=== PATIENT | female | born 1965 | race African-American/Black ===

== ENCOUNTER 2019-02-10 10:43 | Inpatient (IN) | payer MEDICAID ==
[~2019-02-10] VITALS: Ht 162.6 cm; Wt 67.6 kg
[~2019-02-10 10:43] MED LIST: GLIP5TAB12 PO; METF-414 PO
[2019-02-10 11:22] LABS: BASOPHILS % 0.4 % (0.0-2.0); EOSINOPHILS % 1.6 % (0.0-5.0); HEMATOCRIT. 29.9 % (36.0-48.0); HEMOGLOBIN. 9.6 g/dL (12.0-16.0); LYMPHOCYTES % 14.6 % (20.0-50.0); MEAN CORPUSCULAR HEMOGLOBIN 27.7 pg (28.0-32.0); MEAN CORPUSCULAR VOLUME 86.7 fL (81.0-99.0); MEAN PLATELET VOLUME 7.2 fl (7.4-10.4); MONOCYTES % 7.5 % (2.0-8.0); NEUTROPHILS % 75.9 % (40.0-76.0); PLATELET 495 x1000/uL (130-400); RED BLOOD CELL COUNT 3.45 mill/uL (4.2-5.4); RED CELL DISTRIBUTION WIDTH 14.5 % (11.6-14.6)
[2019-02-10 11:27] LABS: CHLORIDE 114 mEq/L (98-107)
[2019-02-10] MEDS ORDERED: FUROSEMIDE 40MG/4ML VIAL IVP ONE (12:30)
[2019-02-10] MEDS ORDERED: ASPIRIN 81MG TABLET PO ONE (12:30)
[2019-02-10] MEDS ORDERED: MAGNESIUM/ALUMINUM HYDROXIDE/SIMETHICONE 30ML UDC PO PRN (15:45)
[2019-02-10] MEDS ORDERED: HALOPERIDOL LACTATE 5MG/ML VIAL IM PRN (15:45)
[2019-02-10] MEDS ORDERED: CLONIDINE 0.1MG TABLET PO PRN (15:45)
[2019-02-10] MEDS ORDERED: DEXTROSE 50% WATER 50ML SYRINGE IV PRN (15:45)
[2019-02-10] MEDS ORDERED: ACETAMINOPHEN 325MG TABLET PO PRN (15:45)
[2019-02-10] MEDS ORDERED: ONDANSETRON HCL 4MG/2ML INJ IV PRN (15:45)
[2019-02-10] MEDS ORDERED: ZOLPIDEM TARTRATE 5MG TABLET PO PRN (15:45)
[2019-02-10] MEDS ORDERED: DOCUSATE SODIUM 100MG CAPSULE PO PRN (15:45)
[2019-02-10] MEDS ORDERED: IPRATROPIUM/ALBUTEROL 0.5-3(2.5)MG/3ML NEB INH PRN (15:45)
[2019-02-10 17:30] VITALS: BP 117/84
[2019-02-10] MEDS: BLOOD SUGAR DIAGNOSTIC STRIP TEST SCH ×2 (19:00→20:27)
[2019-02-10] MEDS: NITROGLYCERIN 0.4MG TABLET SL SL PRN ×2 (19:25→20:35)
[2019-02-10] MEDS: GUAIFENESIN 200MG/10ML SUGAR FREE UDC PO PRN (19:28)
[2019-02-10 20:00] VITALS: BP 127/77
[2019-02-10] MEDS ORDERED: METOLAZONE 10MG TABLET PO NR (20:00)
[2019-02-10] MEDS ORDERED: ENOXAPARIN 30MG/0.3ML SYR SUBCUT SCH (20:00)
[2019-02-10] MEDS: INSULIN LISPRO 100 UNITS/ML SUBCUT SCH (20:26)
[2019-02-10] MEDS: FAMOTIDINE 20MG TABLET PO SCH (20:36)
[2019-02-10] MEDS: FUROSEMIDE 40MG/4ML VIAL IVP SCH (21:00)
[2019-02-10 22:46] LABS: CREATINE KINASE MB FRACTION 1.7 ng/mL (0.5-3.6)
[2019-02-10 23:53] VITALS: BP 90/59
[2019-02-11] MEDS: GUAIFENESIN 200MG/10ML SUGAR FREE UDC PO PRN (02:58)
[2019-02-11 04:00] VITALS: BP 121/66
[2019-02-11 06:05] LABS: BASOPHILS % 0.5 % (0.0-2.0); EOSINOPHILS % 1.4 % (0.0-5.0); HEMOGLOBIN. 8.4 g/dL (12.0-16.0); MEAN CORPUSCULAR HEMOGLOBIN 27.7 pg (28.0-32.0); MEAN CORPUSCULAR VOLUME 85.9 fL (81.0-99.0); MONOCYTES % 8.2 % (2.0-8.0); NEUTROPHILS % 78.9 % (40.0-76.0); PLATELET 439 x1000/uL (130-400); RED BLOOD CELL COUNT 3.02 mill/uL (4.2-5.4); RED CELL DISTRIBUTION WIDTH 14.3 % (11.6-14.6)
[2019-02-11 06:37] LABS: CHLORIDE 114 mEq/L (98-107)
[2019-02-11] MEDS: FUROSEMIDE 40MG/4ML VIAL IVP SCH (06:38)
[2019-02-11 06:43] LABS: PHOSPHORUS 3.3 mg/dL (2.5-4.9)
[2019-02-11 06:44] LABS: TOTAL IRON BINDING CAPACITY 229 ug/dL (250-450)
[2019-02-11 06:46] LABS: CREATINE KINASE 172 IU/L (26-192)
[2019-02-11 06:48] LABS: CREATINE KINASE MB FRACTION 2.1 ng/mL (0.5-3.6)
[2019-02-11 08:00] VITALS: BP 126/90
[2019-02-11] MEDS: BLOOD SUGAR DIAGNOSTIC STRIP TEST SCH (08:08)
[2019-02-11] MEDS: INSULIN LISPRO 100 UNITS/ML SUBCUT SCH (08:08)
[2019-02-11] MEDS: FAMOTIDINE 20MG TABLET PO SCH (08:09)
[2019-02-11] MEDS ORDERED: ASPIRIN 325MG EC TABLET PO SCH (09:00)
[2019-02-11 11:06] VITALS: BP 126/90
[2019-02-11] MEDS ORDERED: GLYB2.5T4 MT (11:20)
[2019-02-11] MEDS ORDERED: ASPI-1079 PO (11:20)
[2019-02-11] MEDS ORDERED: FURO-151 MT (11:20)
[2019-02-12 09:06] LABS: IMMUNOGLOBULIN A 378 mg/dL (87-352); IMMUNOGLOBULIN G 1635 mg/dL (700-1600); IMMUNOGLOBULIN M 64 mg/dL (26-217)
[2019-02-12 13:11] LABS: A/G RATIO 0.7 (0.7-1.7); ALBUMIN 2.6 g/dL (2.9-4.4); ALPHA-1-GLOBULIN 0.5 g/dL (0.0-0.4); ALPHA-2-GLOBULIN 0.9 g/dL (0.4-1.0); BETA GLOBULIN 1.1 g/dL (0.7-1.3); GAMMA GLOBULINS 1.5 g/dL (0.4-1.8); M-SPIKE Not Observed g/dL (Not Observed); TOTAL PROTEIN SERUM 6.6 g/dL (6.0-8.5)
== END 2019-02-11 14:05 | disposition home or self-care (01) | DRG 469 ==
LOC: ER 10:43 → ENRESERV 14:44 → 7WST 18:07
PROVIDERS: ADMIT Internal Medicine; ATTEND Internal Medicine
DX: N17.0 Acute kidney failure with tubular necrosis (principal); J96.00 Acute respiratory failure, unspecified whether with hypoxia or hypercapnia; I50.33 Acute on chronic diastolic (congestive) heart failure; E44.0 Moderate protein-calorie malnutrition; J44.1 Chronic obstructive pulmonary disease with (acute) exacerbation; D63.8 Anemia in other chronic diseases classified elsewhere; E11.22 Type 2 diabetes mellitus with diabetic chronic kidney disease; E83.51 Hypocalcemia; I13.0 Hypertensive heart and chronic kidney disease with heart failure and stage 1 through stage 4 chronic kidney disease, or unspecified chronic kidney disease; E78.5 Hyperlipidemia, unspecified; E83.52 Hypercalcemia; F17.210 Nicotine dependence, cigarettes, uncomplicated; E11.621 Type 2 diabetes mellitus with foot ulcer; E11.51 Type 2 diabetes mellitus with diabetic peripheral angiopathy without gangrene; N18.3 Chronic kidney disease, stage 3 (moderate); Z89.422 Acquired absence of other left toe(s); Z89.511 Acquired absence of right leg below knee; Z79.4 Long term (current) use of insulin; Z82.49 Family history of ischemic heart disease and other diseases of the circulatory system; Z83.3 Family history of diabetes mellitus; Z68.25 Body mass index [BMI] 25.0-25.9, adult
CPT/HCPCS: 36415; 71045; 76770; 80048; 80061; 82550; 82553; 82728; 82784; 82962; 83036; 83540; 83550; 83735; 83880; 84100; 84155; 84165; 84484; 86334; 93005; 93970; 96374; 99285; J1630; J1650; J1940

== ENCOUNTER 2019-06-02 11:32 | Emergency (ER) | payer MEDICARE, MEDICAID ==
[~2019-06-02] VITALS: Ht 162.6 cm; Wt 46.0 kg
[~2019-06-02 11:32] MED LIST changes: +ASPI-1079 PO; +FURO-151 MT; -GLIP5TAB12 PO; +GLYB2.5T4 MT; -METF-414 PO
[2019-06-02] MEDS ORDERED: SODIUM CHLORIDE 0.9% 1000ML BAG (SEPSIS BOLUS) IV ONE (12:00)
[2019-06-02 12:37] LABS: BASOPHILS % 0.4 % (0.0-2.0); HEMATOCRIT. 26.2 % (36.0-48.0); HEMOGLOBIN. 8.3 g/dL (12.0-16.0); LYMPHOCYTES % 23.8 % (20.0-50.0); MEAN CORPUSCULAR HEMOGLOBIN 26.7 pg (28.0-32.0); MEAN PLATELET VOLUME 6.9 fl (7.4-10.4); MONOCYTES % 6.5 % (2.0-8.0); NEUTROPHILS % 65.3 % (40.0-76.0); PLATELET 455 x1000/uL (130-400); RED BLOOD CELL COUNT 3.12 mill/uL (4.2-5.4); RED CELL DISTRIBUTION WIDTH 15.7 % (11.6-14.6)
[2019-06-02 12:42] LABS: CHLORIDE 116 mEq/L (98-107)
[2019-06-02 12:49] LABS: PROTHROMBIN TIME 10.2 sec (9.6-11.0)
[2019-06-02 14:45] VITALS: BP 122/76
== END 2019-06-02 14:40 | disposition home or self-care (01) ==
LOC: ER 11:51
DX: J40 Bronchitis, not specified as acute or chronic (principal); R04.2 Hemoptysis; Z71.6 Tobacco abuse counseling; F17.210 Nicotine dependence, cigarettes, uncomplicated; E11.9 Type 2 diabetes mellitus without complications; Z79.82 Long term (current) use of aspirin; Z89.519 Acquired absence of unspecified leg below knee
CPT/HCPCS: 36415; 71045; 80053; 83605; 85025; 85610; 87040; 93005; 99284; 99406; J7030

== ENCOUNTER 2020-08-20 09:59 | Emergency (ER) | payer MEDICARE, MEDICAID ==
[~2020-08-20] VITALS: Ht 157.5 cm; Wt 55.0 kg
[~2020-08-20 09:59] MED LIST changes: +AMLO5TAB4 PO; -ASPI-1079 PO; +BENA20TA77 PO; +CITR15SO2 PO; -FURO-151 MT; -GLYB2.5T4 MT; +QUET25TA PO; +SODI15OR5 PO
[2020-08-20] MEDS ORDERED: ACETAMINOPHEN 325MG TABLET PO ONE (11:00)
[2020-08-20 11:35] LABS: BASOPHILS % 1.3 % (0.0-2.0); EOSINOPHILS % 3.9 % (0.0-5.0); HEMATOCRIT. 32.8 % (36.0-48.0); HEMOGLOBIN. 9.7 g/dL (12.0-16.0); LYMPHOCYTES % 14.8 % (20.0-50.0); MEAN CORPUSCULAR HEMOGLOBIN 27.3 pg (28.0-32.0); MEAN PLATELET VOLUME 8.4 fl (7.4-10.4); MONOCYTES % 6.1 % (2.0-8.0); NEUTROPHILS % 73.9 % (40.0-76.0); PLATELET 192 x1000/uL (130-400); RED BLOOD CELL COUNT 3.56 mill/uL (4.2-5.4); RED CELL DISTRIBUTION WIDTH 20.6 % (11.6-14.6)
[2020-08-20 11:43] LABS: INR 1.1; PROTHROMBIN TIME 11.7 sec (9.6-11.0)
[2020-08-20 12:40] VITALS: BP 125/62
== END 2020-08-20 13:59 | disposition home or self-care (01) ==
LOC: ER 09:59
DX: K64.4 Residual hemorrhoidal skin tags (principal); E11.9 Type 2 diabetes mellitus without complications; I10 Essential (primary) hypertension; Z87.891 Personal history of nicotine dependence; Z79.899 Other long term (current) drug therapy
CPT/HCPCS: 36415; 82962; 85025; 93005; 99284

== ENCOUNTER 2020-08-30 16:04 | Inpatient (IN) | payer MEDICARE, MEDICAID ==
[~2020-08-30] VITALS: Ht 149.9 cm; Wt 55.3 kg
[2020-08-30] MEDS ORDERED: SODIUM CHLORIDE 0.9% 500 ML IV ONE (17:45)
[2020-08-30] MEDS ORDERED: FAMOTIDINE 20MG/2ML VIAL IV ONE (17:45)
[2020-08-30] MEDS ORDERED: ONDANSETRON HCL 4MG/2ML INJ IV ONE (17:45)
[2020-08-30] MEDS ORDERED: PANTOPRAZOLE SODIUM 40 MG/VIAL IV ONE (18:45)
[2020-08-30 19:58] LABS: BASOPHILS % 1.1 % (0.0-2.0); EOSINOPHILS % 1.5 % (0.0-5.0); HEMATOCRIT. 21.2 % (36.0-48.0); LYMPHOCYTES % 13.4 % (20.0-50.0); MEAN CORPUSCULAR HEMOGLOBIN 28.1 pg (28.0-32.0); MEAN CORPUSCULAR VOLUME 88.7 fL (81.0-99.0); MEAN PLATELET VOLUME 8.5 fl (7.4-10.4); MONOCYTES % 4.6 % (2.0-8.0); NEUTROPHILS % 79.4 % (40.0-76.0); PLATELET 165 x1000/uL (130-400); RED BLOOD CELL COUNT 2.39 mill/uL (4.2-5.4); RED CELL DISTRIBUTION WIDTH 22.5 % (11.6-14.6)
[2020-08-30 20:00] LABS: HEMOGLOBIN. 6.7 g/dL (12.0-16.0)
[2020-08-30 20:03] LABS: CHLORIDE 125 mEq/L (98-107)
[2020-08-30 20:14] LABS: PLATELET ESTIMATE NORMAL
[2020-08-30] MEDS ORDERED: DEXTROSE 50% WATER 50ML SYRINGE IV ONE (20:15)
[2020-08-30] MEDS ORDERED: DEXT 5%/0.9% NACL 1,000 ML IV ONE (20:15)
[2020-08-30] MEDS ORDERED: SODIUM BICARBONATE 8.4% 1 MEQ/ML 50ML SYR IV NR (22:00)
[2020-08-30] MEDS ORDERED: ZOLPIDEM TARTRATE 5MG TABLET PO PRN (22:00)
[2020-08-30] MEDS ORDERED: GUAIFENESIN 200MG/10ML SUGAR FREE UDC PO PRN (22:00)
[2020-08-30] MEDS ORDERED: ACETAMINOPHEN 325MG TABLET PO PRN ×2 (22:00)
[2020-08-30] MEDS ORDERED: IPRATROPIUM/ALBUTEROL 0.5-3(2.5)MG/3ML NEB NEB PRN (22:00)
[2020-08-30] MEDS ORDERED: DOCUSATE SODIUM 100MG CAPSULE PO PRN (22:00)
[2020-08-30] MEDS ORDERED: CLONIDINE 0.1MG TABLET PO PRN (22:00)
[2020-08-30] MEDS ORDERED: MAGNESIUM/ALUMINUM HYDROXIDE/SIMETHICONE 30ML UDC PO PRN (22:00)
[2020-08-30] MEDS ORDERED: NITROGLYCERIN 0.4MG TABLET SL SL PRN (22:00)
[2020-08-30] MEDS ORDERED: ONDANSETRON HCL 4MG/2ML INJ IV PRN (22:00)
[2020-08-30] MEDS ORDERED: HALOPERIDOL LACTATE 5MG/ML VIAL IM PRN (22:12)
[2020-08-31] VITALS (7 sets, daily range): BP systolic 101–135; BP diastolic 47–82
[2020-08-31 00:02] LABS: HEMOGLOBIN 5.2 g/dL (12.0-16.0)
[2020-08-31 00:03] LABS: HEMATOCRIT 16.4 % (36.0-48.0)
[2020-08-31 00:08] LABS: T4 FREE 0.77 ng/dL (0.76-1.46)
[2020-08-31 02:18] LABS: FOLIC ACID (FOLATE) SERUM 10.2 ng/mL (>5.38)
[2020-08-31] MEDS: DEXT 5%/0.45% NACL 1000ML 1,000 ML IV SCH ×3 (03:39→23:55)
[2020-08-31 06:06] LABS: CHLORIDE 125 mEq/L (98-107)
[2020-08-31] MEDS: INSULIN LISPRO 100 UNITS/ML SUBCUT SCH ×4 (06:21→21:00)
[2020-08-31] MEDS: BLOOD SUGAR DIAGNOSTIC STRIP TEST SCH ×4 (06:21→21:00)
[2020-08-31 06:25] LABS: PHOSPHORUS 6.4 mg/dL (2.5-4.9)
[2020-08-31 07:33] LABS: BASOPHILS % 1.4 % (0.0-2.0); EOSINOPHILS % 1.9 % (0.0-5.0); LYMPHOCYTES % 17.6 % (20.0-50.0); MEAN CORPUSCULAR HEMOGLOBIN 28.7 pg (28.0-32.0); MEAN CORPUSCULAR VOLUME 91.8 fL (81.0-99.0); MEAN PLATELET VOLUME 8.6 fl (7.4-10.4); MONOCYTES % 5.2 % (2.0-8.0); NEUTROPHILS % 73.9 % (40.0-76.0); PLATELET 150 x1000/uL (130-400); RED BLOOD CELL COUNT 2.38 mill/uL (4.2-5.4); RED CELL DISTRIBUTION WIDTH 20.3 % (11.6-14.6)
[2020-08-31 07:53] LABS: HEMOGLOBIN. 6.8 g/dL (12.0-16.0)
[2020-08-31 07:54] LABS: HEMATOCRIT. 21.8 % (36.0-48.0)
[2020-08-31] MEDS: FAMOTIDINE 20MG TABLET PO SCH ×2 (09:04→22:12)
[2020-08-31] MEDS: ZINC SULFATE 220 MG ( 50 ) CAPSULE PO SCH (09:04)
[2020-08-31] MEDS: ASCORBIC ACID 500 MG TABLET PO SCH ×2 (09:04→22:12)
[2020-08-31] MEDS: CITRIC ACID/SODIUM CITRATE SOLN 15ML UDC PO SCH ×3 (09:04→17:31)
[2020-08-31 11:34] LABS: PHOSPHORUS 6.3 mg/dL (2.5-4.9)
[2020-08-31] MEDS: SUCRALFATE 1 G/10 ML UDC PO SCH ×2 (13:31→17:32)
[2020-08-31 16:38] LABS: INR 1.2; PARTIAL THROMBOPLASTIN TIME 32.8 sec (23.4-31.0); PROTHROMBIN TIME 12.1 sec (9.6-11.0)
[2020-08-31 17:11] LABS: HEPATITIS B SURFACE ANTIGEN NEGATIVE
[2020-08-31] MEDS: PANTOPRAZOLE SODIUM 40 MG/VIAL IV SCH (17:32)
[2020-08-31 17:41] LABS: HEPATITIS A AB IGM NEGATIVE (NEGATIVE)
[2020-08-31 18:38] LABS: HEMATOCRIT 24.5 % (36.0-48.0); HEMOGLOBIN 7.9 g/dL (12.0-16.0)
[2020-08-31] MEDS ORDERED: PHYTONADIONE 10MG/ML AMP SUBCUT NR (23:57)
[2020-09-01] VITALS (13 sets, daily range): BP systolic 109–149; BP diastolic 43–78
[2020-09-01] MEDS: SUCRALFATE 1 G/10 ML UDC PO SCH ×4 (00:28→18:38)
[2020-09-01] MEDS: DEXT 5%/0.45% NACL 1000ML 1,000 ML IV SCH ×2 (00:29→20:00)
[2020-09-01 00:51] LABS: HEMATOCRIT 23.3 % (36.0-48.0); HEMOGLOBIN 7.5 g/dL (12.0-16.0)
[2020-09-01 01:34] LABS: CLARITY URINE TURBID (CLEAR); COLOR URINE YELLOW (YELLOW); KETONES URINE NEGATIVE (NEGATIVE); LEUKOCYTE ESTERASE URINE 3+ (NEGATIVE); NITRITE URINE NEGATIVE (NEGATIVE); OCCULT BLOOD URINE 2+ (NEGATIVE); PH URINE 6.5 (4.5-8.0); PROTEIN URINE 3+ (NEGATIVE); SPECIFIC GRAVITY URINE 1.014 (1.005-1.030); UROBILINOGEN URINE 0.2 E.U./dL (0.2-1.0)
[2020-09-01] MEDS: BLOOD SUGAR DIAGNOSTIC STRIP TEST SCH ×4 (05:07→21:00)
[2020-09-01] MEDS: INSULIN LISPRO 100 UNITS/ML SUBCUT SCH ×4 (05:16→21:00)
[2020-09-01 06:03] LABS: HEMATOCRIT. 27.3 % (36.0-48.0); HEMOGLOBIN. 8.9 g/dL (12.0-16.0); MEAN CORPUSCULAR VOLUME 88.7 fL (81.0-99.0); MEAN PLATELET VOLUME 8.2 fl (7.4-10.4); PLATELET 142 x1000/uL (130-400); RED BLOOD CELL COUNT 3.07 mill/uL (4.2-5.4); RED CELL DISTRIBUTION WIDTH 18.9 % (11.6-14.6)
[2020-09-01 06:09] LABS: INR 1.1; PROTHROMBIN TIME 11.8 sec (9.6-11.0)
[2020-09-01 06:15] LABS: CHLORIDE 121 mEq/L (98-107)
[2020-09-01] MEDS ORDERED: LACTULOSE 20G/30ML UDC PO NR (09:00)
[2020-09-01] MEDS ORDERED: TUBERCULIN,PURIF.PROT.DERIV. 5 TU/0.1 ML SYR ID ONE (09:00)
[2020-09-01 09:06] LABS: FOLATE HEMATOCRIT 19.1 % (34.0-46.6)
[2020-09-01] MEDS: PANTOPRAZOLE SODIUM 40 MG/VIAL IV SCH ×2 (09:46→18:38)
[2020-09-01] MEDS: CITRIC ACID/SODIUM CITRATE SOLN 15ML UDC PO SCH (09:46)
[2020-09-01] MEDS: ASCORBIC ACID 500 MG TABLET PO SCH ×2 (09:46→22:16)
[2020-09-01] MEDS: FAMOTIDINE 20MG TABLET PO SCH (09:46)
[2020-09-01] MEDS: ZINC SULFATE 220 MG ( 50 ) CAPSULE PO SCH (09:46)
[2020-09-01 09:47] LABS: NUCLEATED RED BLOOD CELLS 2 /100 WBC; PLATELET ESTIMATE NORMAL
[2020-09-01] MEDS: CITRIC ACID/SODIUM CITRATE SOLN 30ML UDC PO SCH ×3 (12:30→17:00)
[2020-09-01] MEDS: LACTULOSE 20G/30ML UDC PO SCH ×8 (12:31→18:00)
[2020-09-01] MEDS ORDERED: SODIUM BICARBONATE 4% (2.4MEQ) 5ML VIAL IV ONE (12:41)
[2020-09-01] MEDS ORDERED: LIDOCAINE HCL 1% 20ML VIAL (Pyxis) INJ ONE (12:41)
[2020-09-01] MEDS ORDERED: CEFAZOLIN 1000MG PREMIX 50 ML IV ONE ×2 (12:45→12:52)
[2020-09-01 12:51] LABS: HEMATOCRIT 25.8 % (36.0-48.0); HEMOGLOBIN 8.5 g/dL (12.0-16.0)
[2020-09-01] MEDS ORDERED: FENTANYL CITRATE/PF 50MCG/ML 2ML VIAL ONE (12:52)
[2020-09-01 13:06] LABS: FOLATE RBC 1822 ng/mL (>498)
[2020-09-01] MEDS ORDERED: HEPARIN 1000 UNITS/ML 10ML ONE (13:25)
[2020-09-01] MEDS: SILDENAFIL CITRATE 20MG TABLET PO SCH ×2 (14:00→22:16)
[2020-09-01] MEDS ORDERED: DEXTROSE 50% WATER 50ML SYRINGE IV NR (19:00)
[2020-09-01] MEDS ORDERED: DEXTROSE 50% WATER 50ML SYRINGE IV ONE (19:01)
[2020-09-01] MEDS ORDERED: PARICALCITOL 2 MCG/ML VIAL IV NR (20:00)
[2020-09-01] MEDS ORDERED: EPOETIN ALFA-EPBX 10,000 UNIT/ML VIAL SUBCUT NR (21:00)
[2020-09-02] VITALS (7 sets, daily range): BP systolic 103–161; BP diastolic 44–91
[2020-09-02] MEDS: SUCRALFATE 1 G/10 ML UDC PO SCH ×4 (01:46→18:29)
[2020-09-02] MEDS: SILDENAFIL CITRATE 20MG TABLET PO SCH ×3 (06:14→21:39)
[2020-09-02] MEDS: BLOOD SUGAR DIAGNOSTIC STRIP TEST SCH ×4 (07:10→21:39)
[2020-09-02 07:11] LABS: HIV SCREEN 4G Non Reactive (Non Reactive)
[2020-09-02] MEDS: INSULIN LISPRO 100 UNITS/ML SUBCUT SCH ×4 (07:40→21:00)
[2020-09-02] MEDS: LACTULOSE 20G/30ML UDC PO SCH ×2 (08:53→18:30)
[2020-09-02] MEDS: CITRIC ACID/SODIUM CITRATE SOLN 30ML UDC PO SCH ×3 (08:53→18:29)
[2020-09-02] MEDS: ZINC SULFATE 220 MG ( 50 ) CAPSULE PO SCH (08:54)
[2020-09-02] MEDS: FAMOTIDINE 20MG TABLET PO SCH (08:54)
[2020-09-02] MEDS: ASCORBIC ACID 500 MG TABLET PO SCH ×2 (08:55→21:38)
[2020-09-02] MEDS: PANTOPRAZOLE SODIUM 40 MG/VIAL IV SCH ×2 (09:00→17:00)
[2020-09-02 09:06] LABS: VITAMIN D 25-OH 6.1 ng/mL (30.0-100.0)
[2020-09-02 10:12] LABS: BASOPHILS % 0.4 % (0.0-2.0); EOSINOPHILS % 2.3 % (0.0-5.0); HEMATOCRIT. 22.6 % (36.0-48.0); HEMOGLOBIN. 7.5 g/dL (12.0-16.0); LYMPHOCYTES % 11.3 % (20.0-50.0); MEAN PLATELET VOLUME 7.8 fl (7.4-10.4); MONOCYTES % 6.5 % (2.0-8.0); NEUTROPHILS % 79.5 % (40.0-76.0); PLATELET 120 x1000/uL (130-400)
[2020-09-02 10:22] LABS: INR 1.1; PROTHROMBIN TIME 11.9 sec (9.6-11.0)
[2020-09-02] MEDS: DEXT 5%/0.45% NACL 1000ML 1,000 ML IV SCH (16:00)
[2020-09-02 23:30] LABS: EOSINOPHILS % 2.6 % (0.0-5.0); HEMATOCRIT. 24.4 % (36.0-48.0); HEMOGLOBIN. 8.1 g/dL (12.0-16.0); LYMPHOCYTES % 13.9 % (20.0-50.0); MEAN CORPUSCULAR HEMOGLOBIN 29.2 pg (28.0-32.0); MEAN CORPUSCULAR VOLUME 88.2 fL (81.0-99.0); MEAN PLATELET VOLUME 7.9 fl (7.4-10.4); MONOCYTES % 7.2 % (2.0-8.0); NEUTROPHILS % 75.3 % (40.0-76.0); PLATELET 121 x1000/uL (130-400); RED BLOOD CELL COUNT 2.76 mill/uL (4.2-5.4); RED CELL DISTRIBUTION WIDTH 18.7 % (11.6-14.6)
[2020-09-02 23:46] LABS: CHLORIDE 114 mEq/L (98-107)
[2020-09-03] VITALS (12 sets, daily range): BP systolic 107–145; BP diastolic 49–82
[2020-09-03] MEDS: SUCRALFATE 1 G/10 ML UDC PO SCH ×4 (00:53→18:24)
[2020-09-03] MEDS: SILDENAFIL CITRATE 20MG TABLET PO SCH ×3 (06:36→22:04)
[2020-09-03] MEDS: INSULIN LISPRO 100 UNITS/ML SUBCUT SCH ×4 (07:40→21:00)
[2020-09-03] MEDS: BLOOD SUGAR DIAGNOSTIC STRIP TEST SCH ×4 (07:51→21:00)
[2020-09-03 08:31] LABS: CHLORIDE 116 mEq/L (98-107)
[2020-09-03 08:33] LABS: BASOPHILS % 0.7 % (0.0-2.0); EOSINOPHILS % 2.3 % (0.0-5.0); HEMATOCRIT. 24.7 % (36.0-48.0); HEMOGLOBIN. 8.1 g/dL (12.0-16.0); LYMPHOCYTES % 11.2 % (20.0-50.0); MEAN CORPUSCULAR HEMOGLOBIN 29.3 pg (28.0-32.0); MEAN CORPUSCULAR VOLUME 89.6 fL (81.0-99.0); MEAN PLATELET VOLUME 8.1 fl (7.4-10.4); MONOCYTES % 6.7 % (2.0-8.0); NEUTROPHILS % 79.1 % (40.0-76.0); PLATELET 117 x1000/uL (130-400); RED BLOOD CELL COUNT 2.76 mill/uL (4.2-5.4); RED CELL DISTRIBUTION WIDTH 18.5 % (11.6-14.6)
[2020-09-03 08:35] LABS: INR 1.1; PROTHROMBIN TIME 11.8 sec (9.6-11.0)
[2020-09-03] MEDS: CITRIC ACID/SODIUM CITRATE SOLN 30ML UDC PO SCH ×3 (09:00→18:24)
[2020-09-03] MEDS: LACTULOSE 20G/30ML UDC PO SCH ×2 (09:00→18:24)
[2020-09-03] MEDS: ZINC SULFATE 220 MG ( 50 ) CAPSULE PO SCH (09:00)
[2020-09-03] MEDS: ASCORBIC ACID 500 MG TABLET PO SCH ×2 (09:00→22:04)
[2020-09-03] MEDS: FAMOTIDINE 20MG TABLET PO SCH (09:00)
[2020-09-03 12:11] LABS: BASOPHILS % 0.5 % (0.0-2.0); EOSINOPHILS % 2.7 % (0.0-5.0); HEMATOCRIT. 33.9 % (36.0-48.0); HEMOGLOBIN. 11.3 g/dL (12.0-16.0); LYMPHOCYTES % 15.1 % (20.0-50.0); MEAN CORPUSCULAR HEMOGLOBIN 28.8 pg (28.0-32.0); MEAN CORPUSCULAR VOLUME 86.2 fL (81.0-99.0); MONOCYTES % 4.9 % (2.0-8.0); NEUTROPHILS % 76.8 % (40.0-76.0); PLATELET 111 x1000/uL (130-400); RED BLOOD CELL COUNT 3.93 mill/uL (4.2-5.4); RED CELL DISTRIBUTION WIDTH 17.7 % (11.6-14.6)
[2020-09-03] MEDS: DEXTROSE 50% WATER 50ML SYRINGE IV PRN (12:11)
[2020-09-03] MEDS: DEXT 5%/0.45% NACL 1000ML 1,000 ML IV SCH (12:11)
[2020-09-03] MEDS: PANTOPRAZOLE SODIUM 40 MG/VIAL IV SCH ×2 (12:17→18:24)
[2020-09-04] VITALS: BP 124/62
[2020-09-04] MEDS: SUCRALFATE 1 G/10 ML UDC PO SCH ×7 (00:33→21:11)
[2020-09-04 04:00] VITALS: BP 153/79
[2020-09-04] MEDS: SILDENAFIL CITRATE 20MG TABLET PO SCH ×3 (06:00→21:11)
[2020-09-04] MEDS: INSULIN LISPRO 100 UNITS/ML SUBCUT SCH ×4 (07:02→20:26)
[2020-09-04] MEDS: BLOOD SUGAR DIAGNOSTIC STRIP TEST SCH ×4 (07:02→20:26)
[2020-09-04 07:41] LABS: BASOPHILS % 0.9 % (0.0-2.0); EOSINOPHILS % 3.7 % (0.0-5.0); HEMOGLOBIN. 11.8 g/dL (12.0-16.0); LYMPHOCYTES % 12.5 % (20.0-50.0); MEAN CORPUSCULAR HEMOGLOBIN 28.5 pg (28.0-32.0); MEAN CORPUSCULAR VOLUME 86.8 fL (81.0-99.0); MEAN PLATELET VOLUME 8.1 fl (7.4-10.4); MONOCYTES % 6.6 % (2.0-8.0); NEUTROPHILS % 76.3 % (40.0-76.0); PLATELET 73 x1000/uL (130-400); RED BLOOD CELL COUNT 4.15 mill/uL (4.2-5.4); RED CELL DISTRIBUTION WIDTH 17.8 % (11.6-14.6)
[2020-09-04 07:44] LABS: INR 1.1; PROTHROMBIN TIME 11.3 sec (9.6-11.0)
[2020-09-04 08:00] VITALS: BP 139/85
[2020-09-04] MEDS: FAMOTIDINE 20MG TABLET PO SCH (08:42)
[2020-09-04] MEDS: LACTULOSE 20G/30ML UDC PO SCH ×2 (08:42→17:00)
[2020-09-04] MEDS: CITRIC ACID/SODIUM CITRATE SOLN 30ML UDC PO SCH ×3 (08:42→17:00)
[2020-09-04] MEDS: ZINC SULFATE 220 MG ( 50 ) CAPSULE PO SCH (08:42)
[2020-09-04] MEDS: ASCORBIC ACID 500 MG TABLET PO SCH ×2 (08:42→21:11)
[2020-09-04] MEDS ORDERED: EPHEDRINE SULFATE 50MG/ML VIAL ONE (08:45)
[2020-09-04] MEDS ORDERED: PHENYLEPHRINE HCL 10 MG/ML 1ML (IV VIAL) IV ONE (08:45)
[2020-09-04] MEDS ORDERED: MIDAZOLAM HCL 2 MG/2 ML VIAL ONE (08:48)
[2020-09-04] MEDS ORDERED: FENTANYL CITRATE/PF 50MCG/ML 2ML VIAL ONE (08:49)
[2020-09-04] MEDS ORDERED: PROPOFOL 200MG/20ML VIAL IV ONE (08:49)
[2020-09-04] MEDS ORDERED: LIDOCAINE HCL/PF 1% 10 MG/ML 5ML VIAL ONE (08:50)
[2020-09-04] MEDS ORDERED: CALCITRIOL 0.5MCG CAPSULE PO NR (09:30)
[2020-09-04] MEDS ORDERED: CALCIUM ACETATE 667MG CAPSULE PO NR (09:32)
[2020-09-04] MEDS ORDERED: HEPARIN SODIUM 1,000 UNIT/1ML VIAL IV NR (10:11)
[2020-09-04] MEDS ORDERED: HEPARIN SODIUM 1,000 UNIT/1ML VIAL IV ONE (10:40)
[2020-09-04] MEDS: DEXT 5%/0.45% NACL 1000ML 1,000 ML IV SCH ×2 (11:47→22:52)
[2020-09-04] MEDS: CALCIUM ACETATE 667MG CAPSULE PO SCH ×2 (11:49→17:40)
[2020-09-04] MEDS: PANTOPRAZOLE SODIUM 40 MG/VIAL IV SCH ×2 (11:49→17:00)
[2020-09-04 12:00] VITALS: BP 151/89
[2020-09-04 16:00] VITALS: BP 128/82
[2020-09-04 20:00] VITALS: BP 144/74
[2020-09-05] VITALS (7 sets, daily range): BP systolic 120–158; BP diastolic 66–80
[2020-09-05] MEDS: BLOOD SUGAR DIAGNOSTIC STRIP TEST SCH ×4 (05:19→21:00)
[2020-09-05] MEDS: SILDENAFIL CITRATE 20MG TABLET PO SCH ×3 (05:26→22:15)
[2020-09-05] MEDS: SUCRALFATE 1 G/10 ML UDC PO SCH ×4 (05:26→22:29)
[2020-09-05] MEDS: INSULIN LISPRO 100 UNITS/ML SUBCUT SCH ×4 (05:29→22:31)
[2020-09-05] MEDS: LACTULOSE 20G/30ML UDC PO SCH ×2 (08:23→17:21)
[2020-09-05] MEDS: PANTOPRAZOLE SODIUM 40 MG/VIAL IV SCH ×2 (08:23→17:21)
[2020-09-05] MEDS: CITRIC ACID/SODIUM CITRATE SOLN 30ML UDC PO SCH ×3 (08:23→17:21)
[2020-09-05] MEDS: ASCORBIC ACID 500 MG TABLET PO SCH ×2 (08:24→22:15)
[2020-09-05] MEDS: ZINC SULFATE 220 MG ( 50 ) CAPSULE PO SCH (08:24)
[2020-09-05] MEDS: CALCIUM ACETATE 667MG CAPSULE PO SCH ×3 (08:24→17:21)
[2020-09-05 09:06] LABS: VITAMIN D 1-25 DIHYDROXY 8.2 pg/mL (19.9-79.3)
[2020-09-05] MEDS ORDERED: THROMBIN (BOVINE) 5000 UNITS/VIAL TOP ONE (10:19)
[2020-09-05] MEDS ORDERED: BACITRACIN 15GM TUBE TOP ONE (10:19)
[2020-09-05] MEDS ORDERED: LIDOCAINE HCL/PF 1% 10 MG/ML 5ML VIAL ONE (10:20)
[2020-09-05] MEDS ORDERED: HEPARIN SODIUM 1,000 UNIT/1ML VIAL IV ONE (10:20)
[2020-09-05] MEDS ORDERED: BUPIVACAINE HCL/PF 0.5% (5MG/ML) 10ML ONE (10:20)
[2020-09-05] MEDS ORDERED: SODIUM CHLORIDE 0.9% INJ 10ML FLUSH IVF ONE (10:20)
[2020-09-05] MEDS ORDERED: BACITRACIN 50,000 UNITS/VIAL ONE (10:20)
[2020-09-05] MEDS: DEXTROSE 50% WATER 50ML SYRINGE IV PRN (12:55)
[2020-09-05] MEDS ORDERED: PROPOFOL 200MG/20ML VIAL IV ONE (13:26)
[2020-09-05] MEDS ORDERED: FENTANYL CITRATE/PF 50MCG/ML 2ML VIAL ONE (13:26)
[2020-09-05] MEDS ORDERED: MIDAZOLAM HCL 2 MG/2 ML VIAL ONE (13:26)
[2020-09-05] MEDS ORDERED: DEXAMETHASONE 4MG/ML 1ML VIAL ONE (13:39)
[2020-09-05] MEDS ORDERED: ONDANSETRON HCL 4MG/2ML INJ ONE (13:41)
[2020-09-05] MEDS ORDERED: ONDANSETRON HCL 4MG/2ML INJ IV PRN (14:00)
[2020-09-05] MEDS ORDERED: LABETALOL 5MG/ML SYR 20 MG/4 ML SYRINGE IV PRN (14:00)
[2020-09-05] MEDS ORDERED: MEPERIDINE HCL/PF 25MG/ML CPJ IV PRN (14:00)
[2020-09-05] MEDS ORDERED: HYDROMORPHONE HCL/PF 2MG/ML CPJ IV PRN (14:00)
[2020-09-05] MEDS ORDERED: METHADONE HCL 5MG TABLET PO PRN (16:00)
[2020-09-06] VITALS: BP 124/75
[2020-09-06] MEDS: DEXT 5%/0.45% NACL 1000ML 1,000 ML IV SCH ×2 (02:41→20:53)
[2020-09-06 04:00] VITALS: BP_SYST 122; BP_SYST 124; BP_DIAS 75; BP_DIAS 82
[2020-09-06] MEDS ORDERED: IBUPROFEN 400MG TABLET PO PRN (04:30)
[2020-09-06] MEDS: BLOOD SUGAR DIAGNOSTIC STRIP TEST SCH ×4 (06:21→21:13)
[2020-09-06] MEDS: SILDENAFIL CITRATE 20MG TABLET PO SCH ×3 (06:37→21:14)
[2020-09-06] MEDS: INSULIN LISPRO 100 UNITS/ML SUBCUT SCH ×4 (06:40→21:00)
[2020-09-06] MEDS: SUCRALFATE 1 G/10 ML UDC PO SCH ×4 (06:50→20:53)
[2020-09-06 08:00] VITALS: BP 106/63
[2020-09-06] MEDS: CITRIC ACID/SODIUM CITRATE SOLN 30ML UDC PO SCH ×3 (09:00→17:00)
[2020-09-06] MEDS: LACTULOSE 20G/30ML UDC PO SCH ×2 (09:00→17:00)
[2020-09-06] MEDS: PANTOPRAZOLE SODIUM 40 MG/VIAL IV SCH ×2 (09:00→17:00)
[2020-09-06] MEDS: CALCIUM ACETATE 667MG CAPSULE PO SCH ×3 (10:38→17:40)
[2020-09-06] MEDS: ASCORBIC ACID 500 MG TABLET PO SCH ×2 (10:38→20:53)
[2020-09-06] MEDS: ZINC SULFATE 220 MG ( 50 ) CAPSULE PO SCH (10:38)
[2020-09-06] MEDS ORDERED: LEVOFLOXACIN 500MG PREMIX 100 ML IV NR (11:00)
[2020-09-06 12:00] VITALS: BP 129/64
[2020-09-06 16:00] VITALS: BP 127/77
[2020-09-06 20:00] VITALS: BP 150/72
[2020-09-07] VITALS: BP 141/75
[2020-09-07 04:00] VITALS: BP 133/76
[2020-09-07] MEDS: SUCRALFATE 1 G/10 ML UDC PO SCH (06:10)
[2020-09-07] MEDS: SILDENAFIL CITRATE 20MG TABLET PO SCH (06:11)
[2020-09-07] MEDS: INSULIN LISPRO 100 UNITS/ML SUBCUT SCH (06:19)
[2020-09-07] MEDS: BLOOD SUGAR DIAGNOSTIC STRIP TEST SCH (06:19)
[2020-09-07 08:00] VITALS: BP 153/83
[2020-09-07] MEDS: PANTOPRAZOLE SODIUM 40 MG/VIAL IV SCH (09:12)
[2020-09-07] MEDS: ASCORBIC ACID 500 MG TABLET PO SCH (09:13)
[2020-09-07] MEDS: ZINC SULFATE 220 MG ( 50 ) CAPSULE PO SCH (09:13)
[2020-09-07] MEDS: LACTULOSE 20G/30ML UDC PO SCH (09:13)
[2020-09-07] MEDS: CALCIUM ACETATE 667MG CAPSULE PO SCH (09:13)
[2020-09-07] MEDS: CITRIC ACID/SODIUM CITRATE SOLN 30ML UDC PO SCH (09:13)
[2020-09-07 11:19] VITALS: BP 132/64
[2020-09-08] MEDS ORDERED: LEVOFLOXACIN 250MG PREMIX 50 ML IV SCH (09:00)
== END 2020-09-07 14:28 | disposition home or self-care (01) | DRG 981 ==
LOC: ER 16:04 → 8WST 21:38 → SUPCPDRO 21:44 → CANRESERV 22:14 → ENRESERV 22:14 → EDBEDREQTM 22:29 → EDBEDREQSVC 22:29 → ENRESERV 22:59
PROVIDERS: ADMIT Internal Medicine; ATTEND Internal Medicine
PROC: 30233N1 Transfusion of Nonautologous Red Blood Cells into Peripheral Vein, Percutaneous Approach (ICD-10-PCS; principal; 2020-08-31)
PROC: 02H633Z Insertion of Infusion Device into Right Atrium, Percutaneous Approach (ICD-10-PCS; 2020-09-01)
PROC: B5181ZA Fluoroscopy of Superior Vena Cava using Low Osmolar Contrast, Guidance (ICD-10-PCS; 2020-09-01)
PROC: B54MZZA Ultrasonography of Right Upper Extremity Veins, Guidance (ICD-10-PCS; 2020-09-01)
PROC: 5A1D70Z Performance of Urinary Filtration, Intermittent, Less than 6 Hours Per Day (ICD-10-PCS; 2020-09-03)
PROC: 0DB68ZX Excision of Stomach, Via Natural or Artificial Opening Endoscopic, Diagnostic (ICD-10-PCS; 2020-09-04)
PROC: 03180ZD Bypass Left Brachial Artery to Upper Arm Vein, Open Approach (ICD-10-PCS; 2020-09-05)
DX: G92 Toxic encephalopathy (principal); K29.01 Acute gastritis with bleeding; E43 Unspecified severe protein-calorie malnutrition; N17.0 Acute kidney failure with tubular necrosis; N18.6 End stage renal disease; K26.4 Chronic or unspecified duodenal ulcer with hemorrhage; E87.0 Hyperosmolality and hypernatremia; E87.2 Acidosis; I12.0 Hypertensive chronic kidney disease with stage 5 chronic kidney disease or end stage renal disease; N25.81 Secondary hyperparathyroidism of renal origin; E11.22 Type 2 diabetes mellitus with diabetic chronic kidney disease; E11.649 Type 2 diabetes mellitus with hypoglycemia without coma; E83.39 Other disorders of phosphorus metabolism; E83.42 Hypomagnesemia; E83.51 Hypocalcemia; E86.0 Dehydration; E87.5 Hyperkalemia; D50.0 Iron deficiency anemia secondary to blood loss (chronic); F20.9 Schizophrenia, unspecified; I13.10 Hypertensive heart and chronic kidney disease without heart failure, with stage 1 through stage 4 chronic kidney disease, or unspecified chronic kidney disease; D69.6 Thrombocytopenia, unspecified; I27.21 Secondary pulmonary arterial hypertension; K29.60 Other gastritis without bleeding; K29.80 Duodenitis without bleeding; Z20.828 Contact with and (suspected) exposure to other viral communicable diseases; K72.90 Hepatic failure, unspecified without coma; Z86.73 Personal history of transient ischemic attack (TIA), and cerebral infarction without residual deficits; Z87.891 Personal history of nicotine dependence; Z89.511 Acquired absence of right leg below knee; Z89.512 Acquired absence of left leg below knee; Z79.899 Other long term (current) drug therapy; Z68.24 Body mass index [BMI] 24.0-24.9, adult
CPT/HCPCS: 36415; 36558; 71045; 76770; 76937; 77001; 80048; 80053; 80061; 81003; 82140; 82248; 82306; 82570; 82607; 82652; 82728; 82746; 82747; 82962; 83036; 83540; 83550; 83735; 83880; 83970; 84100; 84133; 84300; 84439; 84443; 84484; 85014; 85018; 85025; 86705; 86706; 86709; 86803; 86850; 86900; 86920; 87077; 87186; 87340; 87389; 87426; 88305; 88312; 88313; 90585; 93005; 93306; 93922; 93970; 99291; A6261; C1750; C1887; C1893; C9113; J0690; J0885; J1100; J1642; J1644; J1815; J1956; J2250; J2370; J2405; J2501; J2704; J3010; J3430; J3490; J7040; J7042; P9016; U0003; A4315

== ENCOUNTER 2020-09-13 11:36 | Inpatient (IN) | payer MEDICARE, MEDICAID ==
[~2020-09-13] VITALS: Ht 152.4 cm; Wt 54.0 kg
[2020-09-13] MEDS ORDERED: PANTOPRAZOLE SODIUM 40 MG/VIAL IV STA (12:25)
[2020-09-13] MEDS ORDERED: DIPHENHYDRAMINE 50MG/ML VIAL IV STA (12:25)
[2020-09-13] MEDS ORDERED: ONDANSETRON HCL 4MG/2ML INJ IV STA (12:25)
[2020-09-13] MEDS ORDERED: SODIUM CHLORIDE 0.9% 1,000 ML IV ONE (12:30)
[2020-09-13 12:39] LABS: BASOPHILS % 1.6 % (0.0-2.0); EOSINOPHILS % 2.1 % (0.0-5.0); LYMPHOCYTES % 15.4 % (20.0-50.0); MEAN CORPUSCULAR HEMOGLOBIN 28.2 pg (28.0-32.0); MEAN PLATELET VOLUME 8.6 fl (7.4-10.4); MONOCYTES % 6.6 % (2.0-8.0); NEUTROPHILS % 74.3 % (40.0-76.0); PLATELET 197 x1000/uL (130-400); RED BLOOD CELL COUNT 3.18 mill/uL (4.2-5.4); RED CELL DISTRIBUTION WIDTH 16.9 % (11.6-14.6)
[2020-09-13 12:47] LABS: INR 1.1; PROTHROMBIN TIME 11.1 sec (9.6-11.0)
[2020-09-13 14:08] LABS: CHLORIDE 106 mEq/L (98-107)
[2020-09-13] MEDS ORDERED: TRAMADOL 50MG TABLET PO PRN (14:45)
[2020-09-13] MEDS ORDERED: MAGNESIUM/ALUMINUM HYDROXIDE/SIMETHICONE 30ML UDC PO PRN (14:45)
[2020-09-13] MEDS ORDERED: GUAIFENESIN 200MG/10ML SUGAR FREE UDC PO PRN (14:45)
[2020-09-13] MEDS ORDERED: SODIUM POLYSTYRENE SULFONATE 15 G/60 ML BOT PO NR (14:45)
[2020-09-13] MEDS ORDERED: CLONIDINE 0.1MG TABLET PO PRN (14:45)
[2020-09-13] MEDS ORDERED: IPRATROPIUM/ALBUTEROL 0.5-3(2.5)MG/3ML NEB NEB PRN (14:45)
[2020-09-13] MEDS ORDERED: DOCUSATE SODIUM 100MG CAPSULE PO PRN (14:45)
[2020-09-13] MEDS ORDERED: ACETAMINOPHEN 325MG TABLET PO PRN ×2 (14:45)
[2020-09-13] MEDS ORDERED: NITROGLYCERIN 0.4MG TABLET SL SL PRN (14:45)
[2020-09-13] MEDS ORDERED: DEXTROSE 50% WATER 50ML SYRINGE IV PRN (15:00)
[2020-09-13] MEDS ORDERED: PANTOPRAZOLE 80 MG in SODIUM CHLORIDE 0.9% 100 ML IV SCH (15:00)
[2020-09-13 15:40] LABS: *AMPHETAMINES SCREEN URINE NEGATIVE (NEGATIVE); *BARBITURATES SCREEN URINE NEGATIVE (NEGATIVE); *BENZODIAZEPINES SCREEN URINE NEGATIVE (NEGATIVE); *COCAINE SCREEN URINE NEGATIVE (NEGATIVE); METHADONE URINE SCREEN NEGATIVE (NEGATIVE); OPIATES URINE SCREEN NEGATIVE (NEGATIVE)
[2020-09-13 15:41] LABS: CANNABINOID URINE SCREEN NEGATIVE (NEGATIVE); PHENCYCLIDINE URINE SCREEN NEGATIVE (NEGATIVE)
[2020-09-13] MEDS: PANTOPRAZOLE 80 MG in SODIUM CHLORIDE 0.9% 100 ML IV SCH (16:05)
[2020-09-13] MEDS: DEXT 5%/0.45% NACL 1000ML 1,000 ML IV SCH (16:10)
[2020-09-13] MEDS: BLOOD SUGAR DIAGNOSTIC STRIP TEST SCH (17:00)
[2020-09-13] MEDS: SUCRALFATE 1 G/10 ML UDC PO SCH (18:00)
[2020-09-13 18:05] LABS: HEMATOCRIT 22.5 % (36.0-48.0); HEMOGLOBIN 7.3 g/dL (12.0-16.0)
[2020-09-13] MEDS: INSULIN LISPRO 100 UNITS/ML SUBCUT SCH (18:20)
[2020-09-13 23:07] VITALS: BP 96/54
[2020-09-13 23:19] LABS: HEMATOCRIT 24.7 % (36.0-48.0); HEMOGLOBIN 8.2 g/dL (12.0-16.0)
[2020-09-14] VITALS (12 sets, daily range): BP systolic 96–168; BP diastolic 16–91
[2020-09-14] MEDS: PANTOPRAZOLE 80 MG in SODIUM CHLORIDE 0.9% 100 ML IV SCH ×3 (03:11→22:00)
[2020-09-14 05:25] LABS: CHLORIDE 108 mEq/L (98-107)
[2020-09-14 05:31] LABS: PHOSPHORUS 2.1 mg/dL (2.5-4.9)
[2020-09-14] MEDS: SUCRALFATE 1 G/10 ML UDC PO SCH ×4 (06:00→18:02)
[2020-09-14 06:09] LABS: BASOPHILS % 1.1 % (0.0-2.0); HEMATOCRIT. 24.7 % (36.0-48.0); LYMPHOCYTES % 13.2 % (20.0-50.0); MEAN CORPUSCULAR HEMOGLOBIN 28.2 pg (28.0-32.0); MEAN PLATELET VOLUME 8.5 fl (7.4-10.4); MONOCYTES % 4.9 % (2.0-8.0); NEUTROPHILS % 79.8 % (40.0-76.0); PLATELET 136 x1000/uL (130-400); RED BLOOD CELL COUNT 2.84 mill/uL (4.2-5.4); RED CELL DISTRIBUTION WIDTH 16.2 % (11.6-14.6)
[2020-09-14] MEDS: BLOOD SUGAR DIAGNOSTIC STRIP TEST SCH ×4 (07:30→21:12)
[2020-09-14] MEDS: INSULIN LISPRO 100 UNITS/ML SUBCUT SCH ×4 (08:00→21:00)
[2020-09-14] MEDS: ZOLPIDEM TARTRATE 5MG TABLET PO PRN (21:36)
[2020-09-15] VITALS (12 sets, daily range): BP systolic 102–163; BP diastolic 58–79
[2020-09-15] MEDS: SUCRALFATE 1 G/10 ML UDC PO SCH ×5 (00:02→23:50)
[2020-09-15] MEDS: DIPHENHYDRAMINE 50MG/ML VIAL IV PRN ×2 (00:02→22:41)
[2020-09-15] MEDS: DEXT 5%/0.45% NACL 1000ML 1,000 ML IV SCH (02:44)
[2020-09-15] MEDS: PANTOPRAZOLE 80 MG in SODIUM CHLORIDE 0.9% 100 ML IV SCH (05:50)
[2020-09-15] MEDS: INSULIN LISPRO 100 UNITS/ML SUBCUT SCH ×4 (08:00→21:00)
[2020-09-15] MEDS: BLOOD SUGAR DIAGNOSTIC STRIP TEST SCH ×4 (08:01→21:07)
[2020-09-15] MEDS ORDERED: GLUCAGON,HUMAN RECOMBINANT 1MG/VIAL SUBCUT PRN (08:45)
[2020-09-15] MEDS ORDERED: INFLUENZA VACCINE 05/PF 0.5 ML VIAL IM ONE (14:00)
[2020-09-15] MEDS: PANTOPRAZOLE 40MG DR TABLET PO SCH (17:41)
[2020-09-15] MEDS: ONDANSETRON HCL 4MG/2ML INJ IV PRN (20:54)
[2020-09-15] MEDS: ZOLPIDEM TARTRATE 5MG TABLET PO PRN (20:54)
[2020-09-16] VITALS (16 sets, daily range): BP systolic 95–154; BP diastolic 16–85
[2020-09-16] MEDS: DIPHENHYDRAMINE 50MG/ML VIAL IV PRN (03:38)
[2020-09-16] MEDS: ONDANSETRON HCL 4MG/2ML INJ IV PRN (04:43)
[2020-09-16] MEDS: SUCRALFATE 1 G/10 ML UDC PO SCH ×3 (05:57→18:37)
[2020-09-16] MEDS: BLOOD SUGAR DIAGNOSTIC STRIP TEST SCH ×4 (08:00→21:00)
[2020-09-16] MEDS: INSULIN LISPRO 100 UNITS/ML SUBCUT SCH ×4 (08:00→21:00)
[2020-09-16] MEDS: PANTOPRAZOLE 40MG DR TABLET PO SCH ×2 (09:29→18:27)
[2020-09-16 09:53] LABS: BASOPHILS % 0.8 % (0.0-2.0); EOSINOPHILS % 1.5 % (0.0-5.0); LYMPHOCYTES % 10.6 % (20.0-50.0); MEAN CORPUSCULAR HEMOGLOBIN 28.4 pg (28.0-32.0); MEAN CORPUSCULAR VOLUME 86.3 fL (81.0-99.0); MEAN PLATELET VOLUME 7.7 fl (7.4-10.4); MONOCYTES % 6.1 % (2.0-8.0); PLATELET 214 x1000/uL (130-400); RED BLOOD CELL COUNT 2.06 mill/uL (4.2-5.4); RED CELL DISTRIBUTION WIDTH 16.1 % (11.6-14.6)
[2020-09-16 10:13] LABS: HEMOGLOBIN. 5.9 g/dL (12.0-16.0)
[2020-09-16 10:14] LABS: HEMATOCRIT. 17.8 % (36.0-48.0)
[2020-09-17] VITALS (18 sets, daily range): BP systolic 106–179; BP diastolic 52–89
[2020-09-17] MEDS: SUCRALFATE 1 G/10 ML UDC PO SCH ×4 (06:00→17:30)
[2020-09-17 07:15] LABS: HEMATOCRIT. 26.5 % (36.0-48.0); MEAN CORPUSCULAR HEMOGLOBIN 29.4 pg (28.0-32.0); MEAN CORPUSCULAR VOLUME 86.7 fL (81.0-99.0); MEAN PLATELET VOLUME 7.6 fl (7.4-10.4); PLATELET 222 x1000/uL (130-400); RED BLOOD CELL COUNT 3.05 mill/uL (4.2-5.4); RED CELL DISTRIBUTION WIDTH 15.1 % (11.6-14.6)
[2020-09-17] MEDS: INSULIN LISPRO 100 UNITS/ML SUBCUT SCH ×4 (08:00→21:00)
[2020-09-17] MEDS: BLOOD SUGAR DIAGNOSTIC STRIP TEST SCH ×4 (08:10→20:59)
[2020-09-17 09:21] LABS: PLATELET ESTIMATE NORMAL
[2020-09-17] MEDS: PANTOPRAZOLE 40MG DR TABLET PO SCH ×2 (09:50→17:31)
[2020-09-18] VITALS (10 sets, daily range): BP systolic 106–135; BP diastolic 57–73
[2020-09-18] MEDS: SUCRALFATE 1 G/10 ML UDC PO SCH ×3 (05:34→12:34)
[2020-09-18 06:09] LABS: BARBITURATE SCREEN Negative ug/mL (Cutoff:0.1); BENZODIAZEPINE SCREEN Negative ng/mL (Cutoff:20); OPIATES SCREEN Negative ng/mL (Cutoff:5); PHENCYCLIDINE SCREEN Negative ng/mL (Cutoff:8)
[2020-09-18 06:10] LABS: BASOPHILS % 0.6 % (0.0-2.0); EOSINOPHILS % 3.3 % (0.0-5.0); HEMATOCRIT. 27.5 % (36.0-48.0); HEMOGLOBIN. 8.9 g/dL (12.0-16.0); LYMPHOCYTES % 10.3 % (20.0-50.0); MEAN CORPUSCULAR HEMOGLOBIN 28.7 pg (28.0-32.0); MEAN CORPUSCULAR VOLUME 88.4 fL (81.0-99.0); MEAN PLATELET VOLUME 7.6 fl (7.4-10.4); MONOCYTES % 6.9 % (2.0-8.0); NEUTROPHILS % 78.9 % (40.0-76.0); PLATELET 254 x1000/uL (130-400); RED BLOOD CELL COUNT 3.11 mill/uL (4.2-5.4); RED CELL DISTRIBUTION WIDTH 15.8 % (11.6-14.6)
[2020-09-18] MEDS: BLOOD SUGAR DIAGNOSTIC STRIP TEST SCH ×2 (07:30→12:30)
[2020-09-18] MEDS: INSULIN LISPRO 100 UNITS/ML SUBCUT SCH ×2 (08:00→13:00)
[2020-09-18] MEDS: PANTOPRAZOLE 40MG DR TABLET PO SCH ×2 (08:31→11:32)
[2020-09-18] MEDS ORDERED: SUCR1TAB PO (15:33)
[2020-09-18] MEDS ORDERED: PANT40TA4 PO (15:34)
[2020-09-18] MEDS ORDERED: SUCR1TAB30 PO (15:37)
== END 2020-09-18 17:05 | disposition home or self-care (01) | DRG 377 ==
LOC: ER 11:36 → 5EST 14:25 → EDBEDREQSVC 20:31 → EDBEDREQTM 20:31 → ENRESERV 22:28
PROVIDERS: ADMIT Internal Medicine; ATTEND Internal Medicine
PROC: 30233N1 Transfusion of Nonautologous Red Blood Cells into Peripheral Vein, Percutaneous Approach (ICD-10-PCS; principal; 2020-09-13)
DX: K25.4 Chronic or unspecified gastric ulcer with hemorrhage (principal); G92 Toxic encephalopathy; E43 Unspecified severe protein-calorie malnutrition; N18.6 End stage renal disease; S22.31XA Fracture of one rib, right side, initial encounter for closed fracture; D62 Acute posthemorrhagic anemia; I13.11 Hypertensive heart and chronic kidney disease without heart failure, with stage 5 chronic kidney disease, or end stage renal disease; E83.51 Hypocalcemia; E11.22 Type 2 diabetes mellitus with diabetic chronic kidney disease; E87.5 Hyperkalemia; D63.8 Anemia in other chronic diseases classified elsewhere; E11.649 Type 2 diabetes mellitus with hypoglycemia without coma; F20.9 Schizophrenia, unspecified; K29.60 Other gastritis without bleeding; R74.01 Elevation of levels of liver transaminase levels; E11.51 Type 2 diabetes mellitus with diabetic peripheral angiopathy without gangrene; K29.80 Duodenitis without bleeding; W01.0XXA Fall on same level from slipping, tripping and stumbling without subsequent striking against object, initial encounter; Z79.4 Long term (current) use of insulin; Z86.73 Personal history of transient ischemic attack (TIA), and cerebral infarction without residual deficits; Z89.511 Acquired absence of right leg below knee; Z89.512 Acquired absence of left leg below knee; Z99.2 Dependence on renal dialysis; Z68.23 Body mass index [BMI] 23.0-23.9, adult; Y93.89 Activity, other specified; Y92.89 Other specified places as the place of occurrence of the external cause; Y99.8 Other external cause status; Z79.899 Other long term (current) drug therapy
CPT/HCPCS: 36415; 71045; 74176; 76700; 80048; 80053; 80305; 80307; 82140; 82962; 83735; 84100; 85014; 85018; 85025; 86850; 86900; 86920; 90686; 93005; 93923; 93970; 97162; 97166; 99285; A6261; C1893; C9113; J1200; J1610; J1815; J2405; J7030; J7050; P9016

== ENCOUNTER 2020-09-28 10:07 | Inpatient (IN) | payer MEDICARE, MEDICAID ==
[~2020-09-28] VITALS: Ht 165.1 cm; Wt 52.6 kg
[~2020-09-28 10:07] MED LIST changes: +PANT40TA4 PO; +SUCR1TAB30 PO
[2020-09-28] MEDS ORDERED: ONDANSETRON HCL 4MG/2ML INJ IV STA (10:38)
[2020-09-28] MEDS ORDERED: MORPHINE SULFATE 4 MG/ML CPJ (NOT FOR IM USE) IV STA (10:38)
[2020-09-28 12:14] LABS: HEMATOCRIT. 31.1 % (36.0-48.0); HEMOGLOBIN. 9.8 g/dL (12.0-16.0); MEAN CORPUSCULAR HEMOGLOBIN 27.2 pg (28.0-32.0); MEAN CORPUSCULAR VOLUME 85.9 fL (81.0-99.0); MEAN PLATELET VOLUME 6.5 fl (7.4-10.4); PLATELET 411 x1000/uL (130-400); RED BLOOD CELL COUNT 3.62 mill/uL (4.2-5.4); RED CELL DISTRIBUTION WIDTH 15.9 % (11.6-14.6)
[2020-09-28 12:21] LABS: CHLORIDE 108 mEq/L (98-107)
[2020-09-28] MEDS ORDERED: FUROSEMIDE 100MG/10ML VIAL IV STA (12:34)
[2020-09-28 12:38] LABS: INR 1.1; PROTHROMBIN TIME 11.1 sec (9.6-11.0)
[2020-09-28] MEDS ORDERED: SODIUM BICARBONATE 8.4% 1 MEQ/ML 50ML SYR IV ONE (12:45)
[2020-09-28] MEDS ORDERED: INSULIN REGULAR (HUMULIN R) 300UNITS/3ML VIAL IV ONE (12:45)
[2020-09-28] MEDS ORDERED: PIPERACILLIN/TAZ 3.375G PREMIX 50 ML IV ONE (12:45)
[2020-09-28] MEDS ORDERED: ALBUTEROL (0.083%) 2.5MG/3ML NEB HHN ONE (12:45)
[2020-09-28] MEDS ORDERED: DEXTROSE 50% WATER 50ML SYRINGE IV ONE (12:45)
[2020-09-28] MEDS ORDERED: VANCOMYCIN 1 G PREMIX 200 ML IV ONE (12:45)
[2020-09-28] MEDS ORDERED: CALCIUM CHLORIDE 1GM/10ML SYR IV ONE (12:45)
[2020-09-28 12:51] LABS: PLATELET ESTIMATE INCREASED
[2020-09-28] MEDS ORDERED: PIPERACILLIN/TAZOBACTAM 3.375 G in DEXT 5% WATER 100 ML IV SCH (13:30)
[2020-09-28 15:39] VITALS: BP 107/51
[2020-09-28 16:11] VITALS: BP 114/67
[2020-09-28] MEDS: SUCRALFATE 1G TABLET PO SCH ×2 (16:40→21:07)
[2020-09-28] MEDS ORDERED: HEPARIN SODIUM 1,000 UNIT/1ML VIAL IV NR (18:24)
[2020-09-28] MEDS ORDERED: HEPARIN SODIUM 1,000 UNIT/1ML VIAL IV SCH (18:30)
[2020-09-28 20:00] VITALS: BP 98/68
[2020-09-28] MEDS ORDERED: PIPERACILLIN/TAZOBACTAM 2.25 G in DEXTROSE 5% WATER 50 ML IV SCH (21:00)
[2020-09-28] MEDS: PANTOPRAZOLE SODIUM 40 MG/VIAL IV SCH (21:07)
[2020-09-28] MEDS: PIPERACILLIN/TAZOBACTAM 2.25 G in DEXTROSE 5% WATER 50 ML IV SCH (21:07)
[2020-09-29] VITALS (7 sets, daily range): BP systolic 89–125; BP diastolic 36–67
[2020-09-29] MEDS: SUCRALFATE 1G TABLET PO SCH ×4 (06:03→20:53)
[2020-09-29 06:26] LABS: HEMATOCRIT. 28.8 % (36.0-48.0); HEMOGLOBIN. 9.2 g/dL (12.0-16.0); MEAN CORPUSCULAR HEMOGLOBIN 27.8 pg (28.0-32.0); MEAN CORPUSCULAR VOLUME 86.5 fL (81.0-99.0); MEAN PLATELET VOLUME 6.5 fl (7.4-10.4); PLATELET 288 x1000/uL (130-400); RED BLOOD CELL COUNT 3.33 mill/uL (4.2-5.4); RED CELL DISTRIBUTION WIDTH 16.3 % (11.6-14.6)
[2020-09-29 08:59] LABS: PLATELET ESTIMATE NORMAL
[2020-09-29] MEDS: PIPERACILLIN/TAZOBACTAM 2.25 G in DEXTROSE 5% WATER 50 ML IV SCH ×2 (09:13→20:54)
[2020-09-29] MEDS: PANTOPRAZOLE SODIUM 40 MG/VIAL IV SCH ×2 (09:13→20:53)
[2020-09-29] MEDS: HYDROCODONE/ACETAMINOPHEN 5/325MG TABLET PO PRN (12:09)
[2020-09-29] MEDS ORDERED: VANCOMYCIN 1 G PREMIX 200 ML IV SCH (12:30)
[2020-09-29] MEDS ORDERED: VANCOMYCIN 1 G PREMIX 200 ML IV NR (13:00)
[2020-09-29] MEDS ORDERED: LIDOCAINE HCL 1% 20ML VIAL (Pyxis) INJ ONE (13:55)
[2020-09-29] MEDS ORDERED: SODIUM BICARBONATE 4% (2.4MEQ) 5ML VIAL IV ONE (13:55)
[2020-09-29] MEDS ORDERED: CEFTRIAXONE 1,000 MG in DEXTROSE 5% WATER 50 ML IV SCH (15:00)
[2020-09-29] MEDS ORDERED: SODIUM CHLORIDE 0.9% 250 ML IV ONE (16:15)
[2020-09-30] VITALS: BP 90/45
[2020-09-30 04:00] VITALS: BP_SYST 82; BP_SYST 92; BP_DIAS 46
[2020-09-30] MEDS: SUCRALFATE 1G TABLET PO SCH ×4 (05:29→21:23)
[2020-09-30 08:00] VITALS: BP 108/46
[2020-09-30] MEDS ORDERED: LORAZEPAM 2MG/ML CPJ IV NR (08:13)
[2020-09-30] MEDS: PANTOPRAZOLE SODIUM 40 MG/VIAL IV SCH ×2 (08:36→21:23)
[2020-09-30] MEDS: PIPERACILLIN/TAZOBACTAM 2.25 G in DEXTROSE 5% WATER 50 ML IV SCH ×2 (08:37→21:23)
[2020-09-30] MEDS ORDERED: LIDOCAINE HCL 1% 20ML VIAL (Pyxis) INJ ONE (08:38)
[2020-09-30] MEDS ORDERED: SODIUM BICARBONATE 4% (2.4MEQ) 5ML VIAL IV ONE (08:38)
[2020-09-30 09:46] LABS: BASOPHILS % 0.7 % (0.0-2.0); HEMATOCRIT. 29.7 % (36.0-48.0); HEMOGLOBIN. 9.6 g/dL (12.0-16.0); LYMPHOCYTES % 8.6 % (20.0-50.0); MEAN CORPUSCULAR VOLUME 86.4 fL (81.0-99.0); MEAN PLATELET VOLUME 6.7 fl (7.4-10.4); MONOCYTES % 6.6 % (2.0-8.0); NEUTROPHILS % 81.1 % (40.0-76.0); PLATELET 293 x1000/uL (130-400); RED BLOOD CELL COUNT 3.43 mill/uL (4.2-5.4); RED CELL DISTRIBUTION WIDTH 16.2 % (11.6-14.6)
[2020-09-30 12:00] VITALS: BP 130/60
[2020-09-30 16:00] VITALS: BP 123/50
[2020-09-30 20:00] VITALS: BP 129/52
[2020-09-30] MEDS: QUETIAPINE FUMARATE 25MG TABLET PO SCH (21:23)
[2020-09-30] MEDS ORDERED: HEPARIN SODIUM 1,000 UNIT/1ML VIAL IV SCH (23:00)
[2020-09-30] MEDS ORDERED: PARICALCITOL 2 MCG/ML VIAL IV NR (23:30)
[2020-10-01] MEDS: EPOETIN ALFA-EPBX 4,000 UNIT/ML VIAL SUBCUT SCH ×2 (03:26→21:00)
[2020-10-01 04:00] VITALS: BP 125/50
[2020-10-01 06:07] LABS: BASOPHILS % 0.5 % (0.0-2.0); HEMATOCRIT. 26.9 % (36.0-48.0); HEMOGLOBIN. 8.8 g/dL (12.0-16.0); LYMPHOCYTES % 7.5 % (20.0-50.0); MEAN CORPUSCULAR HEMOGLOBIN 27.1 pg (28.0-32.0); MONOCYTES % 5.9 % (2.0-8.0); NEUTROPHILS % 83.1 % (40.0-76.0); PLATELET 292 x1000/uL (130-400); RED BLOOD CELL COUNT 3.24 mill/uL (4.2-5.4); RED CELL DISTRIBUTION WIDTH 16.7 % (11.6-14.6)
[2020-10-01] MEDS: SUCRALFATE 1G TABLET PO SCH ×4 (06:31→21:38)
[2020-10-01] MEDS ORDERED: POTASSIUM CHLORIDE 20MEQ/PACKET PO NR (07:00)
[2020-10-01 08:00] VITALS: BP 118/48
[2020-10-01] MEDS: PIPERACILLIN/TAZOBACTAM 2.25 G in DEXTROSE 5% WATER 50 ML IV SCH ×2 (08:26→21:38)
[2020-10-01] MEDS: PANTOPRAZOLE SODIUM 40 MG/VIAL IV SCH ×2 (08:26→21:37)
[2020-10-01 12:00] VITALS: BP 110/63
[2020-10-01 15:57] VITALS: BP 111/68
[2020-10-01] MEDS: ACETAMINOPHEN 650MG/20.3ML UDC PO PRN (16:28)
[2020-10-01 20:00] VITALS: BP 102/48
[2020-10-01] MEDS: QUETIAPINE FUMARATE 25MG TABLET PO SCH (21:38)
[2020-10-02] VITALS: BP 109/48
[2020-10-02 04:00] VITALS: BP 108/49
[2020-10-02] MEDS: SUCRALFATE 1G TABLET PO SCH ×4 (06:39→21:07)
[2020-10-02 06:52] LABS: EOSINOPHILS % 4.3 % (0.0-5.0); HEMOGLOBIN. 8.5 g/dL (12.0-16.0); LYMPHOCYTES % 8.7 % (20.0-50.0); MEAN CORPUSCULAR HEMOGLOBIN 27.1 pg (28.0-32.0); MEAN CORPUSCULAR VOLUME 85.7 fL (81.0-99.0); MEAN PLATELET VOLUME 6.8 fl (7.4-10.4); MONOCYTES % 6.2 % (2.0-8.0); NEUTROPHILS % 79.8 % (40.0-76.0); PLATELET 395 x1000/uL (130-400); RED BLOOD CELL COUNT 3.15 mill/uL (4.2-5.4); RED CELL DISTRIBUTION WIDTH 16.6 % (11.6-14.6)
[2020-10-02 08:00] VITALS: BP 93/53
[2020-10-02] MEDS: PIPERACILLIN/TAZOBACTAM 2.25 G in DEXTROSE 5% WATER 50 ML IV SCH ×2 (08:48→21:07)
[2020-10-02] MEDS: PANTOPRAZOLE SODIUM 40 MG/VIAL IV SCH ×2 (08:48→21:07)
[2020-10-02 12:00] VITALS: BP 121/65
[2020-10-02] MEDS: HYDROCODONE/ACETAMINOPHEN 5/325MG TABLET PO PRN ×2 (13:13→21:29)
[2020-10-02 16:00] VITALS: BP 98/44
[2020-10-02 20:00] VITALS: BP 100/56
[2020-10-02] MEDS: EPOETIN ALFA-EPBX 4,000 UNIT/ML VIAL SUBCUT SCH (21:00)
[2020-10-02] MEDS: QUETIAPINE FUMARATE 25MG TABLET PO SCH (21:07)
[2020-10-03] VITALS: BP 105/47
[2020-10-03 04:00] VITALS: BP 110/67
[2020-10-03] MEDS: SUCRALFATE 1G TABLET PO SCH ×4 (05:48→22:22)
[2020-10-03 08:00] VITALS: BP 130/56
[2020-10-03 09:34] LABS: BASOPHILS % 1.1 % (0.0-2.0); EOSINOPHILS % 3.6 % (0.0-5.0); HEMATOCRIT. 33.7 % (36.0-48.0); MEAN CORPUSCULAR VOLUME 86.1 fL (81.0-99.0); MEAN PLATELET VOLUME 6.6 fl (7.4-10.4); MONOCYTES % 5.9 % (2.0-8.0); NEUTROPHILS % 80.4 % (40.0-76.0); PLATELET 414 x1000/uL (130-400); RED BLOOD CELL COUNT 3.92 mill/uL (4.2-5.4)
[2020-10-03] MEDS: PIPERACILLIN/TAZOBACTAM 2.25 G in DEXTROSE 5% WATER 50 ML IV SCH ×2 (09:39→22:22)
[2020-10-03] MEDS: PANTOPRAZOLE SODIUM 40 MG/VIAL IV SCH ×2 (09:39→22:22)
[2020-10-03 09:44] LABS: HEMOGLOBIN. 10.6 g/dL (12.0-16.0)
[2020-10-03 12:00] VITALS: BP 130/67
[2020-10-03] MEDS ORDERED: HEPARIN SODIUM 1,000 UNIT/1ML VIAL IV NR (12:15)
[2020-10-03 16:00] VITALS: BP 110/58
[2020-10-03] MEDS: VANCOMYCIN 750 MG PREMIX 150 ML IV NR (18:03)
[2020-10-03 20:19] VITALS: BP 136/65
[2020-10-03] MEDS: EPOETIN ALFA-EPBX 4,000 UNIT/ML VIAL SUBCUT SCH (21:00)
[2020-10-03] MEDS: QUETIAPINE FUMARATE 25MG TABLET PO SCH (22:22)
[2020-10-04 00:23] VITALS: BP 141/72
[2020-10-04] MEDS: VANCOMYCIN 750 MG PREMIX 150 ML IV NR (01:22)
[2020-10-04 04:35] VITALS: BP 144/78
[2020-10-04] MEDS: SUCRALFATE 1G TABLET PO SCH ×4 (06:22→20:47)
[2020-10-04 08:00] VITALS: BP 134/65
[2020-10-04] MEDS: PANTOPRAZOLE SODIUM 40 MG/VIAL IV SCH ×2 (09:32→20:48)
[2020-10-04 12:00] VITALS: BP 126/80
[2020-10-04 16:03] LABS: BASOPHILS % 1.3 % (0.0-2.0); EOSINOPHILS % 3.3 % (0.0-5.0); HEMATOCRIT. 26.6 % (36.0-48.0); HEMOGLOBIN. 8.5 g/dL (12.0-16.0); LYMPHOCYTES % 7.3 % (20.0-50.0); MEAN CORPUSCULAR HEMOGLOBIN 26.9 pg (28.0-32.0); MEAN CORPUSCULAR VOLUME 84.3 fL (81.0-99.0); MEAN PLATELET VOLUME 6.7 fl (7.4-10.4); MONOCYTES % 4.8 % (2.0-8.0); NEUTROPHILS % 83.3 % (40.0-76.0); PLATELET 465 x1000/uL (130-400); RED BLOOD CELL COUNT 3.15 mill/uL (4.2-5.4); RED CELL DISTRIBUTION WIDTH 16.4 % (11.6-14.6)
[2020-10-04 20:00] VITALS: BP 110/58
[2020-10-04] MEDS: QUETIAPINE FUMARATE 25MG TABLET PO SCH (20:47)
[2020-10-04] MEDS: LOPERAMIDE HCL 2MG CAPSULE PO PRN (20:48)
[2020-10-05] VITALS: BP 112/64
[2020-10-05 04:00] VITALS: BP 112/62
[2020-10-05] MEDS: SUCRALFATE 1G TABLET PO SCH ×4 (06:53→21:19)
[2020-10-05 07:07] LABS: BASOPHILS % 0.8 % (0.0-2.0); EOSINOPHILS % 4.2 % (0.0-5.0); HEMATOCRIT. 28.4 % (36.0-48.0); LYMPHOCYTES % 11.4 % (20.0-50.0); MEAN CORPUSCULAR HEMOGLOBIN 26.5 pg (28.0-32.0); MEAN CORPUSCULAR VOLUME 83.5 fL (81.0-99.0); MEAN PLATELET VOLUME 6.4 fl (7.4-10.4); MONOCYTES % 5.7 % (2.0-8.0); NEUTROPHILS % 77.9 % (40.0-76.0); PLATELET 483 x1000/uL (130-400); RED CELL DISTRIBUTION WIDTH 16.6 % (11.6-14.6)
[2020-10-05 08:19] VITALS: BP 135/62
[2020-10-05] MEDS: PANTOPRAZOLE SODIUM 40 MG/VIAL IV SCH ×2 (09:19→21:19)
[2020-10-05 12:00] VITALS: BP 110/64
[2020-10-05 16:00] VITALS: BP 148/70
[2020-10-05] MEDS: LOPERAMIDE HCL 2MG CAPSULE PO PRN (16:41)
[2020-10-05 20:00] VITALS: BP 141/80
[2020-10-05] MEDS: EPOETIN ALFA-EPBX 4,000 UNIT/ML VIAL SUBCUT SCH (21:00)
[2020-10-05] MEDS: QUETIAPINE FUMARATE 25MG TABLET PO SCH (21:19)
[2020-10-06] VITALS: BP 107/57
[2020-10-06] MEDS: LOPERAMIDE HCL 2MG CAPSULE PO PRN (03:19)
[2020-10-06 04:00] VITALS: BP 102/61
[2020-10-06] MEDS: SUCRALFATE 1G TABLET PO SCH ×4 (06:08→20:36)
[2020-10-06 07:25] LABS: BASOPHILS % 1.5 % (0.0-2.0); EOSINOPHILS % 3.8 % (0.0-5.0); HEMATOCRIT. 27.9 % (36.0-48.0); HEMOGLOBIN. 8.9 g/dL (12.0-16.0); LYMPHOCYTES % 14.9 % (20.0-50.0); MEAN CORPUSCULAR VOLUME 84.1 fL (81.0-99.0); MEAN PLATELET VOLUME 6.5 fl (7.4-10.4); MONOCYTES % 5.5 % (2.0-8.0); NEUTROPHILS % 74.3 % (40.0-76.0); PLATELET 552 x1000/uL (130-400); RED BLOOD CELL COUNT 3.32 mill/uL (4.2-5.4); RED CELL DISTRIBUTION WIDTH 16.8 % (11.6-14.6)
[2020-10-06 08:00] VITALS: BP 109/63
[2020-10-06] MEDS: PANTOPRAZOLE SODIUM 40 MG/VIAL IV SCH ×2 (08:03→20:36)
[2020-10-06] MEDS: ACETAMINOPHEN 650MG/20.3ML UDC PO PRN (08:05)
[2020-10-06 11:59] VITALS: BP 134/67
[2020-10-06 16:00] VITALS: BP 140/63
[2020-10-06] MEDS ORDERED: VANCOMYCIN 500 MG PREMIX 100 ML IV SCH (17:00)
[2020-10-06 20:00] VITALS: BP 103/55
[2020-10-06] MEDS: ONDANSETRON HCL 4MG/2ML INJ IV PRN (20:21)
[2020-10-06] MEDS ORDERED: HEPARIN SODIUM 1,000 UNIT/1ML VIAL IV NR (21:00)
[2020-10-06] MEDS ORDERED: HEPARIN SODIUM 1,000 UNIT/1ML VIAL IV ONE (21:15)
[2020-10-07] VITALS (7 sets, daily range): BP systolic 102–141; BP diastolic 49–76
[2020-10-07] MEDS: EPOETIN ALFA-EPBX 4,000 UNIT/ML VIAL SUBCUT SCH (01:24)
[2020-10-07] MEDS: QUETIAPINE FUMARATE 25MG TABLET PO SCH ×2 (01:24→21:05)
[2020-10-07] MEDS: SUCRALFATE 1G TABLET PO SCH ×4 (06:01→21:06)
[2020-10-07 07:25] LABS: TOTAL IRON BINDING CAPACITY 187 ug/dL (250-450)
[2020-10-07] MEDS: PANTOPRAZOLE SODIUM 40 MG/VIAL IV SCH ×2 (10:13→21:05)
[2020-10-07] MEDS ORDERED: VANCOMYCIN 500 MG PREMIX 100 ML IV SCH (12:30)
[2020-10-07 17:28] LABS: BASOPHILS % 1.2 % (0.0-2.0); HEMATOCRIT. 28.7 % (36.0-48.0); HEMOGLOBIN. 9.3 g/dL (12.0-16.0); MEAN CORPUSCULAR HEMOGLOBIN 27.5 pg (28.0-32.0); MEAN CORPUSCULAR VOLUME 84.7 fL (81.0-99.0); MEAN PLATELET VOLUME 6.3 fl (7.4-10.4); MONOCYTES % 6.3 % (2.0-8.0); NEUTROPHILS % 74.5 % (40.0-76.0); PLATELET 476 x1000/uL (130-400); RED BLOOD CELL COUNT 3.38 mill/uL (4.2-5.4); RED CELL DISTRIBUTION WIDTH 17.1 % (11.6-14.6)
[2020-10-08] VITALS (10 sets, daily range): BP systolic 120–139; BP diastolic 66–98
[2020-10-08] MEDS ORDERED: GENTAMICIN 80MG PREMIX 100 ML IV SCH (00:30)
[2020-10-08] MEDS: SUCRALFATE 1G TABLET PO SCH ×4 (06:41→21:12)
[2020-10-08] MEDS: PANTOPRAZOLE SODIUM 40 MG/VIAL IV SCH ×2 (09:00→21:11)
[2020-10-08 11:57] LABS: BASOPHILS % 1.3 % (0.0-2.0); EOSINOPHILS % 4.8 % (0.0-5.0); HEMATOCRIT. 29.2 % (36.0-48.0); LYMPHOCYTES % 15.6 % (20.0-50.0); MEAN CORPUSCULAR HEMOGLOBIN 26.5 pg (28.0-32.0); MEAN CORPUSCULAR VOLUME 85.7 fL (81.0-99.0); MEAN PLATELET VOLUME 6.5 fl (7.4-10.4); MONOCYTES % 6.4 % (2.0-8.0); NEUTROPHILS % 71.9 % (40.0-76.0); PLATELET 539 x1000/uL (130-400); RED BLOOD CELL COUNT 3.41 mill/uL (4.2-5.4); RED CELL DISTRIBUTION WIDTH 17.1 % (11.6-14.6)
[2020-10-08] MEDS: ACETAMINOPHEN 650MG/20.3ML UDC PO PRN (12:22)
[2020-10-08] MEDS ORDERED: SODIUM POLYSTYRENE SULFONATE 15 G/60 ML BOT PO ONE (12:45)
[2020-10-08] MEDS: LOPERAMIDE HCL 2MG CAPSULE PO PRN (21:12)
[2020-10-08] MEDS: QUETIAPINE FUMARATE 25MG TABLET PO SCH (21:12)
[2020-10-09 04:00] VITALS: BP 111/56
[2020-10-09 08:00] VITALS: BP 138/77
[2020-10-09] MEDS: ONDANSETRON HCL 4MG/2ML INJ IV PRN (08:42)
[2020-10-09] MEDS: PANTOPRAZOLE SODIUM 40 MG/VIAL IV SCH ×2 (08:42→21:37)
[2020-10-09] MEDS: SUCRALFATE 1G TABLET PO SCH ×4 (08:42→21:37)
[2020-10-09] MEDS ORDERED: GENTAMICIN 80MG PREMIX 100 ML IV ONE (09:00)
[2020-10-09] MEDS ORDERED: DEXTROSE 50% WATER 50ML SYRINGE IV ONE (10:30)
[2020-10-09] MEDS: LORAZEPAM 0.5MG TABLET PO PRN ×2 (10:33→21:37)
[2020-10-09] MEDS ORDERED: INSULIN REGULAR (HUMULIN R) UD 100 UNITS/ML SYR IV NR (11:30)
[2020-10-09 11:45] LABS: BASOPHILS % 1.5 % (0.0-2.0); HEMATOCRIT. 26.5 % (36.0-48.0); HEMOGLOBIN. 8.6 g/dL (12.0-16.0); LYMPHOCYTES % 13.7 % (20.0-50.0); MEAN CORPUSCULAR HEMOGLOBIN 27.7 pg (28.0-32.0); MEAN CORPUSCULAR VOLUME 85.3 fL (81.0-99.0); MEAN PLATELET VOLUME 6.8 fl (7.4-10.4); MONOCYTES % 4.4 % (2.0-8.0); NEUTROPHILS % 76.4 % (40.0-76.0); PLATELET 493 x1000/uL (130-400); RED CELL DISTRIBUTION WIDTH 16.8 % (11.6-14.6)
[2020-10-09 12:00] VITALS: BP 129/74
[2020-10-09] MEDS: FERROUS SULFATE 325MG TABLET PO SCH ×2 (12:34→17:59)
[2020-10-09] MEDS: ASCORBIC ACID 500 MG TABLET PO SCH (12:35)
[2020-10-09 14:00] VITALS: BP 90/28
[2020-10-09] MEDS ORDERED: HEPARIN SODIUM 1,000 UNIT/1ML VIAL IV ONE (14:00)
[2020-10-09] MEDS ORDERED: HEPARIN SODIUM 1,000 UNIT/1ML VIAL IV NR (14:15)
[2020-10-09 16:00] VITALS: BP 119/64
[2020-10-09] MEDS: QUETIAPINE FUMARATE 25MG TABLET PO SCH (21:37)
[2020-10-09] MEDS: EPOETIN ALFA-EPBX 4,000 UNIT/ML VIAL SUBCUT SCH (21:41)
[2020-10-10] VITALS: BP 134/76
[2020-10-10 08:00] VITALS: BP 122/55
[2020-10-10] MEDS ORDERED: SODIUM POLYSTYRENE SULFONATE 15 G/60 ML BOT PO NR (09:00)
[2020-10-10] MEDS: SUCRALFATE 1G TABLET PO SCH ×4 (09:31→23:07)
[2020-10-10] MEDS: ASCORBIC ACID 500 MG TABLET PO SCH (09:31)
[2020-10-10] MEDS: FERROUS SULFATE 325MG TABLET PO SCH ×5 (09:31→18:34)
[2020-10-10] MEDS: PANTOPRAZOLE SODIUM 40 MG/VIAL IV SCH ×2 (09:31→23:07)
[2020-10-10] MEDS: LORAZEPAM 0.5MG TABLET PO PRN ×3 (09:37→23:07)
[2020-10-10 12:00] VITALS: BP 153/92
[2020-10-10 13:11] LABS: BASOPHILS % 1.1 % (0.0-2.0); EOSINOPHILS % 5.4 % (0.0-5.0); HEMATOCRIT. 30.6 % (36.0-48.0); HEMOGLOBIN. 9.9 g/dL (12.0-16.0); MEAN CORPUSCULAR HEMOGLOBIN 27.1 pg (28.0-32.0); MEAN CORPUSCULAR VOLUME 84.3 fL (81.0-99.0); MEAN PLATELET VOLUME 6.3 fl (7.4-10.4); MONOCYTES % 6.8 % (2.0-8.0); NEUTROPHILS % 73.7 % (40.0-76.0); PLATELET 338 x1000/uL (130-400); RED BLOOD CELL COUNT 3.63 mill/uL (4.2-5.4); RED CELL DISTRIBUTION WIDTH 17.1 % (11.6-14.6)
[2020-10-10 16:00] VITALS: BP 140/70
[2020-10-10] MEDS ORDERED: [UNRECOGNIZED DRUG - REMARK] XX SCH (16:15)
[2020-10-10] MEDS: DAPTOMYCIN 350 MG in SODIUM CHLORIDE 0.9% 50 ML IV SCH (18:33)
[2020-10-10 20:00] VITALS: BP 137/97
[2020-10-10] MEDS: LOPERAMIDE HCL 2MG CAPSULE PO PRN (23:07)
[2020-10-10] MEDS: QUETIAPINE FUMARATE 25MG TABLET PO SCH (23:07)
[2020-10-11] VITALS: BP 93/55
[2020-10-11 04:00] VITALS: BP 107/68
[2020-10-11 08:00] VITALS: BP 117/59
[2020-10-11] MEDS: FERROUS SULFATE 325MG TABLET PO SCH ×3 (08:20→17:41)
[2020-10-11] MEDS: PANTOPRAZOLE SODIUM 40 MG/VIAL IV SCH ×2 (08:20→22:06)
[2020-10-11] MEDS: ASCORBIC ACID 500 MG TABLET PO SCH (08:20)
[2020-10-11] MEDS: SUCRALFATE 1G TABLET PO SCH ×4 (08:20→22:07)
[2020-10-11 12:00] VITALS: BP 123/67
[2020-10-11 16:00] VITALS: BP 152/91
[2020-10-11 20:00] VITALS: BP 113/67
[2020-10-11] MEDS: QUETIAPINE FUMARATE 25MG TABLET PO SCH (22:10)
[2020-10-11] MEDS: EPOETIN ALFA-EPBX 4,000 UNIT/ML VIAL SUBCUT SCH (22:12)
[2020-10-12] VITALS: BP 121/56
[2020-10-12 04:00] VITALS: BP 131/71
[2020-10-12] MEDS: SUCRALFATE 1G TABLET PO SCH ×4 (06:37→20:23)
[2020-10-12 08:00] VITALS: BP 117/63
[2020-10-12] MEDS: FERROUS SULFATE 325MG TABLET PO SCH ×3 (08:00→18:00)
[2020-10-12 08:42] LABS: BASOPHILS % 1.4 % (0.0-2.0); EOSINOPHILS % 5.6 % (0.0-5.0); HEMATOCRIT. 25.2 % (36.0-48.0); HEMOGLOBIN. 8.1 g/dL (12.0-16.0); LYMPHOCYTES % 12.7 % (20.0-50.0); MEAN CORPUSCULAR HEMOGLOBIN 26.8 pg (28.0-32.0); MEAN CORPUSCULAR VOLUME 83.5 fL (81.0-99.0); MEAN PLATELET VOLUME 6.1 fl (7.4-10.4); MONOCYTES % 7.3 % (2.0-8.0); PLATELET 469 x1000/uL (130-400); RED BLOOD CELL COUNT 3.02 mill/uL (4.2-5.4); RED CELL DISTRIBUTION WIDTH 17.3 % (11.6-14.6)
[2020-10-12] MEDS: PANTOPRAZOLE SODIUM 40 MG/VIAL IV SCH ×2 (08:55→20:23)
[2020-10-12] MEDS: ASCORBIC ACID 500 MG TABLET PO SCH (08:55)
[2020-10-12 09:11] LABS: CREATINE KINASE 34 IU/L (26-192)
[2020-10-12] MEDS: LORAZEPAM 0.5MG TABLET PO PRN (11:41)
[2020-10-12 11:55] VITALS: BP 130/49
[2020-10-12 16:00] VITALS: BP 105/50
[2020-10-12] MEDS: DAPTOMYCIN 350 MG in SODIUM CHLORIDE 0.9% 50 ML IV SCH (18:36)
[2020-10-12 20:00] VITALS: BP 111/57
[2020-10-12] MEDS: CEFEPIME 1,000 MG in DEXTROSE 5% WATER 50 ML IV SCH (20:23)
[2020-10-12] MEDS: QUETIAPINE FUMARATE 25MG TABLET PO SCH (20:24)
[2020-10-13] VITALS (8 sets, daily range): BP systolic 111–138; BP diastolic 66–77
[2020-10-13] MEDS: SUCRALFATE 1G TABLET PO SCH ×4 (06:42→20:41)
[2020-10-13] MEDS ORDERED: FERROUS SULFATE 325MG TABLET PO SCH (08:00)
[2020-10-13] MEDS: FERROUS SULFATE 325MG TABLET PO SCH ×3 (08:11→17:08)
[2020-10-13] MEDS: ASCORBIC ACID 500 MG TABLET PO SCH (08:11)
[2020-10-13] MEDS: PANTOPRAZOLE SODIUM 40 MG/VIAL IV SCH ×2 (08:12→20:41)
[2020-10-13] MEDS ORDERED: LIDOCAINE HCL 1% 20ML VIAL (Pyxis) INJ ONE (08:20)
[2020-10-13] MEDS: LORAZEPAM 0.5MG TABLET PO PRN ×2 (08:56→17:08)
[2020-10-13] MEDS ORDERED: LORAZEPAM 2MG/ML CPJ IV NR (09:00)
[2020-10-13] MEDS: CEFEPIME 1,000 MG in DEXTROSE 5% WATER 50 ML IV SCH (20:41)
[2020-10-13] MEDS: QUETIAPINE FUMARATE 25MG TABLET PO SCH (20:41)
[2020-10-14 04:00] VITALS: BP 130/68
[2020-10-14 06:00] VITALS: BP 144/77
[2020-10-14 07:58] VITALS: BP 144/76
[2020-10-14] MEDS: ASCORBIC ACID 500 MG TABLET PO SCH (08:22)
[2020-10-14] MEDS: SUCRALFATE 1G TABLET PO SCH ×4 (08:22→21:00)
[2020-10-14] MEDS: PANTOPRAZOLE SODIUM 40 MG/VIAL IV SCH ×2 (08:22→21:00)
[2020-10-14] MEDS: FERROUS SULFATE 325MG TABLET PO SCH ×3 (08:22→17:43)
[2020-10-14 12:00] VITALS: BP 134/79
[2020-10-14] MEDS ORDERED: LORAZEPAM 2MG/ML CPJ IV PRN (17:00)
[2020-10-14] MEDS: DAPTOMYCIN 350 MG in SODIUM CHLORIDE 0.9% 50 ML IV SCH (17:43)
[2020-10-14 20:00] VITALS: BP 140/77
[2020-10-14] MEDS: CEFEPIME 1,000 MG in DEXTROSE 5% WATER 50 ML IV SCH (20:00)
[2020-10-14] MEDS: QUETIAPINE FUMARATE 25MG TABLET PO SCH (21:00)
[2020-10-14 22:00] VITALS: BP 138/74
[2020-10-15] VITALS (8 sets, daily range): BP systolic 117–149; BP diastolic 63–80
[2020-10-15] MEDS: LORAZEPAM 0.5MG TABLET PO PRN (08:45)
[2020-10-15] MEDS: SUCRALFATE 1G TABLET PO SCH ×4 (08:45→21:00)
[2020-10-15] MEDS: ASCORBIC ACID 500 MG TABLET PO SCH (08:45)
[2020-10-15] MEDS: FERROUS SULFATE 325MG TABLET PO SCH ×3 (08:45→16:56)
[2020-10-15] MEDS: PANTOPRAZOLE SODIUM 40 MG/VIAL IV SCH (08:47)
[2020-10-15] MEDS: CEFEPIME 1,000 MG in DEXTROSE 5% WATER 50 ML IV SCH (20:00)
[2020-10-15] MEDS: PANTOPRAZOLE 40MG DR TABLET PO SCH (21:00)
[2020-10-15] MEDS: QUETIAPINE FUMARATE 25MG TABLET PO SCH (21:00)
[2020-10-16 00:47] VITALS: BP 118/67
[2020-10-16 04:00] VITALS: BP 121/69
[2020-10-16 08:00] VITALS: BP 145/75
[2020-10-16 08:23] LABS: BASOPHILS % 1.5 % (0.0-2.0); EOSINOPHILS % 5.7 % (0.0-5.0); HEMATOCRIT. 26.5 % (36.0-48.0); HEMOGLOBIN. 8.5 g/dL (12.0-16.0); LYMPHOCYTES % 20.2 % (20.0-50.0); MEAN CORPUSCULAR HEMOGLOBIN 26.9 pg (28.0-32.0); MEAN CORPUSCULAR VOLUME 84.2 fL (81.0-99.0); MONOCYTES % 8.9 % (2.0-8.0); NEUTROPHILS % 63.7 % (40.0-76.0); RED BLOOD CELL COUNT 3.14 mill/uL (4.2-5.4); RED CELL DISTRIBUTION WIDTH 16.3 % (11.6-14.6)
[2020-10-16 08:31] LABS: PARTIAL THROMBOPLASTIN TIME 30.6 sec (23.4-31.0); PROTHROMBIN TIME 10.8 sec (9.6-11.0)
[2020-10-16] MEDS ORDERED: HALOPERIDOL LACTATE 5MG/ML VIAL IM NR (09:30)
[2020-10-16] MEDS: PANTOPRAZOLE 40MG DR TABLET PO SCH ×2 (09:32→21:35)
[2020-10-16] MEDS: SUCRALFATE 1G TABLET PO SCH ×4 (09:32→21:35)
[2020-10-16] MEDS: ASCORBIC ACID 500 MG TABLET PO SCH (09:32)
[2020-10-16] MEDS: FERROUS SULFATE 325MG TABLET PO SCH ×3 (09:32→18:39)
[2020-10-16 09:52] LABS: PLATELET 503 x1000/uL (130-400)
[2020-10-16] MEDS ORDERED: LORAZEPAM 2MG/ML CPJ IV NR (10:30)
[2020-10-16] MEDS ORDERED: LIDOCAINE HCL 1% 20ML VIAL (Pyxis) INJ ONE (10:48)
[2020-10-16] MEDS ORDERED: SODIUM BICARBONATE 4% (2.4MEQ) 5ML VIAL IV ONE (10:48)
[2020-10-16 12:00] VITALS: BP 150/89
[2020-10-16 16:00] VITALS: BP 101/59
[2020-10-16 20:00] VITALS: BP 138/74
[2020-10-16] MEDS: QUETIAPINE FUMARATE 25MG TABLET PO SCH (21:35)
[2020-10-16] MEDS: CEFEPIME 1,000 MG in DEXTROSE 5% WATER 50 ML IV SCH (21:35)
[2020-10-16] MEDS: DAPTOMYCIN 350 MG in SODIUM CHLORIDE 0.9% 50 ML IV SCH (21:35)
[2020-10-17] VITALS: BP 155/65
[2020-10-17 04:00] VITALS: BP 137/68
[2020-10-17] MEDS: SUCRALFATE 1G TABLET PO SCH ×4 (06:37→21:04)
[2020-10-17 08:00] VITALS: BP 134/71
[2020-10-17] MEDS: PANTOPRAZOLE 40MG DR TABLET PO SCH ×3 (09:00→21:04)
[2020-10-17] MEDS: ASCORBIC ACID 500 MG TABLET PO SCH (09:57)
[2020-10-17] MEDS: LORAZEPAM 0.5MG TABLET PO PRN ×2 (09:57→14:20)
[2020-10-17] MEDS: FERROUS SULFATE 325MG TABLET PO SCH ×3 (09:57→18:00)
[2020-10-17 12:00] VITALS: BP 133/51
[2020-10-17] MEDS: RISPERIDONE 0.5MG TABLET PO SCH (18:00)
[2020-10-17 20:00] VITALS: BP 117/66
[2020-10-17] MEDS: QUETIAPINE FUMARATE 25MG TABLET PO SCH (21:05)
[2020-10-17] MEDS: CEFEPIME 1,000 MG in DEXTROSE 5% WATER 50 ML IV SCH (21:06)
[2020-10-18] VITALS (19 sets, daily range): BP systolic 102–154; BP diastolic 60–83
[2020-10-18] MEDS: SUCRALFATE 1G TABLET PO SCH ×3 (06:29→18:29)
[2020-10-18] MEDS: FERROUS SULFATE 325MG TABLET PO SCH ×3 (07:50→18:29)
[2020-10-18] MEDS ORDERED: LORAZEPAM 2MG/ML CPJ IV NR (08:45)
[2020-10-18] MEDS ORDERED: SODIUM BICARBONATE 4% (2.4MEQ) 5ML VIAL IV ONE (08:57)
[2020-10-18] MEDS ORDERED: HEPARIN 1000 UNITS/ML 10ML ONE (08:58)
[2020-10-18] MEDS ORDERED: LIDOCAINE HCL 1% 20ML VIAL (Pyxis) INJ ONE (08:58)
[2020-10-18] MEDS: ASCORBIC ACID 500 MG TABLET PO SCH (09:00)
[2020-10-18] MEDS: PANTOPRAZOLE 40MG DR TABLET PO SCH (09:00)
[2020-10-18] MEDS: RISPERIDONE 0.5MG TABLET PO SCH (09:00)
[2020-10-18] MEDS ORDERED: FENTANYL CITRATE/PF 50MCG/ML 2ML VIAL ONE (09:11)
[2020-10-18] MEDS ORDERED: FENTANYL CITRATE/PF 50MCG/ML 2ML VIAL IV ONE (09:45)
[2020-10-18] MEDS: LORAZEPAM 0.5MG TABLET PO PRN (13:07)
[2020-10-18 14:22] LABS: HEPATITIS B SURFACE AB < 3.1 mIU/mL
[2020-10-18 14:33] LABS: HEPATITIS B SURFACE ANTIGEN NEGATIVE
[2020-10-18 15:03] LABS: HEPATITIS A AB IGM NEGATIVE (NEGATIVE)
[2020-10-18] MEDS: DAPTOMYCIN 350 MG in SODIUM CHLORIDE 0.9% 50 ML IV SCH (18:29)
[2020-10-18] MEDS: RISPERIDONE 1MG TABLET PO SCH (18:30)
[2020-10-19] VITALS: BP 165/87
[2020-10-19] MEDS: CEFEPIME 1,000 MG in DEXTROSE 5% WATER 50 ML IV SCH ×2 (00:10→20:44)
[2020-10-19] MEDS: PANTOPRAZOLE 40MG DR TABLET PO SCH ×2 (00:12→08:36)
[2020-10-19] MEDS: QUETIAPINE FUMARATE 25MG TABLET PO SCH ×2 (00:12→20:45)
[2020-10-19] MEDS: SUCRALFATE 1G TABLET PO SCH ×5 (00:12→20:44)
[2020-10-19 04:00] VITALS: BP 73/46
[2020-10-19] MEDS ORDERED: HEPARIN SODIUM 1,000 UNIT/1ML VIAL IV NR (04:15)
[2020-10-19] MEDS ORDERED: ALBUMIN HUMAN 25GM/100ML (25%) IV NR (05:00)
[2020-10-19 07:08] LABS: HIV SCREEN 4G Non Reactive (Non Reactive)
[2020-10-19 08:00] VITALS: BP 163/85
[2020-10-19] MEDS: ASCORBIC ACID 500 MG TABLET PO SCH (08:36)
[2020-10-19] MEDS: RISPERIDONE 1MG TABLET PO SCH (08:36)
[2020-10-19] MEDS: FERROUS SULFATE 325MG TABLET PO SCH ×3 (08:41→17:59)
[2020-10-19 12:00] VITALS: BP 121/76
[2020-10-19 16:00] VITALS: BP 165/99
[2020-10-19 20:00] VITALS: BP 143/75
[2020-10-20] VITALS: BP 149/81
[2020-10-20] MEDS ORDERED: LORAZEPAM 2MG/ML CPJ IV PRN (01:15)
[2020-10-20 04:00] VITALS: BP 139/80
[2020-10-20] MEDS: PANTOPRAZOLE 40MG DR TABLET PO SCH ×3 (07:14→09:56)
[2020-10-20] MEDS: SUCRALFATE 1G TABLET PO SCH ×5 (07:14→20:52)
[2020-10-20 08:00] VITALS: BP 139/73
[2020-10-20] MEDS: ASCORBIC ACID 500 MG TABLET PO SCH (09:56)
[2020-10-20] MEDS: FERROUS SULFATE 325MG TABLET PO SCH ×3 (09:56→17:32)
[2020-10-20] MEDS: RISPERIDONE 1MG TABLET PO SCH (09:56)
[2020-10-20 10:18] LABS: CREATINE KINASE 80 IU/L (26-192)
[2020-10-20 16:00] VITALS: BP 127/92
[2020-10-20] MEDS: DAPTOMYCIN 350 MG in SODIUM CHLORIDE 0.9% 50 ML IV SCH (18:14)
[2020-10-20 20:00] VITALS: BP 173/88
[2020-10-20] MEDS: CEFEPIME 1,000 MG in DEXTROSE 5% WATER 50 ML IV SCH (20:52)
[2020-10-20] MEDS: QUETIAPINE FUMARATE 25MG TABLET PO SCH (20:53)
[2020-10-20] MEDS ORDERED: CLONIDINE 0.1MG TABLET PO PRN (23:15)
[2020-10-21] VITALS: BP 124/62
[2020-10-21 04:00] VITALS: BP 134/65
[2020-10-21] MEDS: SUCRALFATE 1G TABLET PO SCH ×4 (06:47→23:37)
[2020-10-21] MEDS: PANTOPRAZOLE 40MG DR TABLET PO SCH (06:47)
[2020-10-21 08:00] VITALS: BP 149/83
[2020-10-21] MEDS: ASCORBIC ACID 500 MG TABLET PO SCH (08:31)
[2020-10-21] MEDS: RISPERIDONE 1MG TABLET PO SCH (08:31)
[2020-10-21] MEDS: FERROUS SULFATE 325MG TABLET PO SCH ×3 (08:31→17:17)
[2020-10-21 12:00] VITALS: BP 157/85
[2020-10-21 16:00] VITALS: BP 144/78
[2020-10-21 20:00] VITALS: BP 150/80
[2020-10-21] MEDS: CEFEPIME 1,000 MG in DEXTROSE 5% WATER 50 ML IV SCH (23:37)
[2020-10-21] MEDS: QUETIAPINE FUMARATE 25MG TABLET PO SCH (23:37)
[2020-10-22] VITALS: BP 157/84
[2020-10-22 04:00] VITALS: BP 154/89
[2020-10-22 06:19] LABS: BASOPHILS % 1.5 % (0.0-2.0); EOSINOPHILS % 6.2 % (0.0-5.0); HEMATOCRIT. 27.3 % (36.0-48.0); HEMOGLOBIN. 8.8 g/dL (12.0-16.0); LYMPHOCYTES % 22.1 % (20.0-50.0); MEAN CORPUSCULAR HEMOGLOBIN 26.6 pg (28.0-32.0); MEAN CORPUSCULAR VOLUME 82.7 fL (81.0-99.0); MEAN PLATELET VOLUME 6.2 fl (7.4-10.4); MONOCYTES % 8.3 % (2.0-8.0); NEUTROPHILS % 61.9 % (40.0-76.0); PLATELET 378 x1000/uL (130-400); RED CELL DISTRIBUTION WIDTH 16.4 % (11.6-14.6)
[2020-10-22] MEDS: SUCRALFATE 1G TABLET PO SCH ×3 (07:06→17:20)
[2020-10-22] MEDS: PANTOPRAZOLE 40MG DR TABLET PO SCH (07:06)
[2020-10-22 08:00] VITALS: BP 161/83
[2020-10-22] MEDS: RISPERIDONE 1MG TABLET PO SCH (08:48)
[2020-10-22] MEDS: FERROUS SULFATE 325MG TABLET PO SCH ×3 (08:48→17:50)
[2020-10-22] MEDS: ASCORBIC ACID 500 MG TABLET PO SCH (08:49)
[2020-10-22 12:00] VITALS: BP 123/72
[2020-10-22 16:00] VITALS: BP 156/78
[2020-10-22] MEDS ORDERED: DAPTOMYCIN 300 MG in SODIUM CHLORIDE 0.9% 50 ML IV SCH (18:00)
[2020-10-22 20:00] VITALS: BP 127/64
[2020-10-22] MEDS ORDERED: LORAZEPAM 2MG/ML CPJ IV PRN (20:15)
[2020-10-23] VITALS: BP 143/57
[2020-10-23] MEDS: CEFEPIME 1,000 MG in DEXTROSE 5% WATER 50 ML IV SCH (03:20)
[2020-10-23] MEDS: PANTOPRAZOLE 40MG DR TABLET PO SCH (06:49)
[2020-10-23 07:37] LABS: BASOPHILS % 1.4 % (0.0-2.0); HEMATOCRIT. 25.4 % (36.0-48.0); LYMPHOCYTES % 17.1 % (20.0-50.0); MEAN CORPUSCULAR HEMOGLOBIN 26.4 pg (28.0-32.0); MEAN CORPUSCULAR VOLUME 83.8 fL (81.0-99.0); MEAN PLATELET VOLUME 6.4 fl (7.4-10.4); MONOCYTES % 7.9 % (2.0-8.0); NEUTROPHILS % 68.6 % (40.0-76.0); PLATELET 326 x1000/uL (130-400); RED BLOOD CELL COUNT 3.03 mill/uL (4.2-5.4)
[2020-10-23 08:00] VITALS: BP 165/78
[2020-10-23] MEDS: FERROUS SULFATE 325MG TABLET PO SCH ×3 (09:32→17:56)
[2020-10-23] MEDS: ASCORBIC ACID 500 MG TABLET PO SCH (09:32)
[2020-10-23] MEDS: RISPERIDONE 1MG TABLET PO SCH (09:32)
[2020-10-23 10:06] LABS: INR 1.1; PARTIAL THROMBOPLASTIN TIME 31.9 sec (23.4-31.0); PROTHROMBIN TIME 11.1 sec (9.6-11.0)
[2020-10-23 12:00] VITALS: BP 143/68
[2020-10-23] MEDS: SUCRALFATE 1G TABLET PO SCH ×2 (12:59→17:56)
[2020-10-23 15:36] VITALS: BP 132/75
[2020-10-23 16:00] VITALS: BP 140/73
[2020-10-23] MEDS ORDERED: GENTAMICIN 80MG PREMIX 100 ML IV SCH (17:00)
[2020-10-23] MEDS ORDERED: CEFEPIME 1,000 MG in DEXTROSE 5% WATER 50 ML IV SCH (21:00)
[2020-10-24] MEDS ORDERED: CEFEPIME 1GM PREMIX 50 ML IV SCH (03:00)
[2020-10-24] MEDS ORDERED: FAMOTIDINE 20MG TABLET PO SCH (09:00)
== END 2020-10-23 18:51 | disposition home health service (06) | DRG 721 ==
LOC: ER 10:07 → 5WST 12:39 → EDBEDREQ 12:43 → EDBEDREQTM 12:43 → ENRESERV 13:01 → 5EST 10-07 18:03 → 6WST 10-15 00:01 → 6EST 10-20 17:52
PROVIDERS: ADMIT Internal Medicine; ATTEND Internal Medicine
PROC: 4A00X4Z Measurement of Central Nervous Electrical Activity, External Approach (ICD-10-PCS; principal; 2020-09-28)
PROC: 02PYX3Z Removal of Infusion Device from Great Vessel, External Approach (ICD-10-PCS; 2020-09-29)
PROC: 0JPT3XZ Removal of Tunneled Vascular Access Device from Trunk Subcutaneous Tissue and Fascia, Percutaneous Approach (ICD-10-PCS; 2020-09-29)
PROC: 06HY33Z Insertion of Infusion Device into Lower Vein, Percutaneous Approach (ICD-10-PCS; 2020-09-30)
PROC: B54CZZA Ultrasonography of Left Lower Extremity Veins, Guidance (ICD-10-PCS; 2020-09-30)
PROC: 5A1D70Z Performance of Urinary Filtration, Intermittent, Less than 6 Hours Per Day (ICD-10-PCS; 2020-10-09)
PROC: 06PYX3Z Removal of Infusion Device from Lower Vein, External Approach (ICD-10-PCS; 2020-10-13)
PROC: 06HY33Z Insertion of Infusion Device into Lower Vein, Percutaneous Approach (ICD-10-PCS; 2020-10-13)
PROC: B54CZZA Ultrasonography of Left Lower Extremity Veins, Guidance (ICD-10-PCS; 2020-10-13)
PROC: 02H633Z Insertion of Infusion Device into Right Atrium, Percutaneous Approach (ICD-10-PCS; 2020-10-16)
PROC: B518ZZA Fluoroscopy of Superior Vena Cava, Guidance (ICD-10-PCS; 2020-10-16)
PROC: B548ZZA Ultrasonography of Superior Vena Cava, Guidance (ICD-10-PCS; 2020-10-16)
PROC: 0JH63XZ Insertion of Tunneled Vascular Access Device into Chest Subcutaneous Tissue and Fascia, Percutaneous Approach (ICD-10-PCS; 2020-10-18)
PROC: 02H633Z Insertion of Infusion Device into Right Atrium, Percutaneous Approach (ICD-10-PCS; 2020-10-18)
PROC: B518ZZA Fluoroscopy of Superior Vena Cava, Guidance (ICD-10-PCS; 2020-10-18)
PROC: 5A1D70Z Performance of Urinary Filtration, Intermittent, Less than 6 Hours Per Day (ICD-10-PCS; 2020-10-21)
PROC: 5A1D70Z Performance of Urinary Filtration, Intermittent, Less than 6 Hours Per Day (ICD-10-PCS; 2020-10-22)
DX: T80.211A Bloodstream infection due to central venous catheter, initial encounter (principal); I13.2 Hypertensive heart and chronic kidney disease with heart failure and with stage 5 chronic kidney disease, or end stage renal disease; A41.02 Sepsis due to Methicillin resistant Staphylococcus aureus; E43 Unspecified severe protein-calorie malnutrition; N18.6 End stage renal disease; G92 Toxic encephalopathy; E87.1 Hypo-osmolality and hyponatremia; D62 Acute posthemorrhagic anemia; E87.5 Hyperkalemia; E87.8 Other disorders of electrolyte and fluid balance, not elsewhere classified; F10.10 Alcohol abuse, uncomplicated; E11.22 Type 2 diabetes mellitus with diabetic chronic kidney disease; K29.80 Duodenitis without bleeding; Y90.9 Presence of alcohol in blood, level not specified; R16.0 Hepatomegaly, not elsewhere classified; F20.9 Schizophrenia, unspecified; E88.09 Other disorders of plasma-protein metabolism, not elsewhere classified; K72.90 Hepatic failure, unspecified without coma; E11.51 Type 2 diabetes mellitus with diabetic peripheral angiopathy without gangrene; D63.8 Anemia in other chronic diseases classified elsewhere; I99.8 Other disorder of circulatory system; Z20.828 Contact with and (suspected) exposure to other viral communicable diseases; L89.156 Pressure-induced deep tissue damage of sacral region; F03.90 Unspecified dementia, unspecified severity, without behavioral disturbance, psychotic disturbance, mood disturbance, and anxiety; I27.20 Pulmonary hypertension, unspecified; I36.1 Nonrheumatic tricuspid (valve) insufficiency; S22.31XA Fracture of one rib, right side, initial encounter for closed fracture; W18.39XA Other fall on same level, initial encounter; K29.60 Other gastritis without bleeding; K25.9 Gastric ulcer, unspecified as acute or chronic, without hemorrhage or perforation; A41.81 Sepsis due to Enterococcus; D50.9 Iron deficiency anemia, unspecified; E87.2 Acidosis; G93.89 Other specified disorders of brain; T82.818A Embolism due to vascular prosthetic devices, implants and grafts, initial encounter; Y83.2 Surgical operation with anastomosis, bypass or graft as the cause of abnormal reaction of the patient, or of later complication, without mention of misadventure at the time of the procedure; Y84.8 Other medical procedures as the cause of abnormal reaction of the patient, or of later complication, without mention of misadventure at the time of the procedure; I50.32 Chronic diastolic (congestive) heart failure; Z99.2 Dependence on renal dialysis; Z91.19 Patient's noncompliance with other medical treatment and regimen; Z86.73 Personal history of transient ischemic attack (TIA), and cerebral infarction without residual deficits; Z79.899 Other long term (current) drug therapy; Z68.1 Body mass index [BMI] 19.9 or less, adult; Z89.511 Acquired absence of right leg below knee; Z74.01 Bed confinement status; Z87.891 Personal history of nicotine dependence; Y93.89 Activity, other specified; Y92.89 Other specified places as the place of occurrence of the external cause; Y99.8 Other external cause status; Z79.4 Long term (current) use of insulin; Z89.512 Acquired absence of left leg below knee
CPT/HCPCS: 36415; 36556; 36558; 36580; 36589; 71045; 74176; 76937; 77001; 80048; 80053; 80202; 82140; 82550; 82728; 82962; 83540; 83550; 83605; 85025; 86705; 86706; 86709; 86803; 86850; 86900; 87077; 87186; 87340; 87389; 87426; 92610; 93005; 93308; 95816; 99152; 99153; 99291; A6261; C1750; C1752; C1887; C1893; C9113; J0692; J0696; J0878; J0885; J1580; J1642; J1644; J1815; J1940; J2060; J2270; J2405; J2501; J2543; J3010; J3370; J3490; J7040; J7060; P9047; G0500

== ENCOUNTER 2020-10-30 14:22 | Emergency (ER) | payer MEDICARE, MEDICAID ==
[~2020-10-30] VITALS: Ht 152.4 cm; Wt 56.0 kg
[~2020-10-30 14:22] MED LIST changes: -SODI15OR5 PO
[2020-10-30 14:27] VITALS: BP 143/70
[2020-10-31] MEDS ORDERED: EPOETIN ALFA-EPBX 10,000 UNIT/ML VIAL SUBCUT SCH (21:00)
== END 2020-10-30 19:27 | disposition left against medical advice (07) ==
LOC: ER 14:22
DX: Z53.21 Procedure and treatment not carried out due to patient leaving prior to being seen by health care provider (principal); Z49.31 Encounter for adequacy testing for hemodialysis
CPT/HCPCS: 93005

== ENCOUNTER 2020-12-26 20:53 | Inpatient (IN) | payer MEDICARE, MEDICAID ==
[~2020-12-26] VITALS: Ht 167.6 cm; Wt 49.9 kg
[~2020-12-26 20:53] MED LIST changes: -PANT40TA4 PO; +PANT40TA51 PO
[2020-12-26] MEDS ORDERED: ONDANSETRON HCL 4MG/2ML INJ IV ONE (22:00)
[2020-12-26 22:12] LABS: HEMATOCRIT. 30.6 % (36.0-48.0); HEMOGLOBIN. 9.7 g/dL (12.0-16.0); MEAN CORPUSCULAR HEMOGLOBIN 27.3 pg (28.0-32.0); MEAN PLATELET VOLUME 8.1 fl (7.4-10.4); PLATELET 232 x1000/uL (130-400); RED BLOOD CELL COUNT 3.56 mill/uL (4.2-5.4)
[2020-12-26 22:21] LABS: CHLORIDE 99 mEq/L (98-107)
[2020-12-26 22:28] LABS: INR 1.2; PROTHROMBIN TIME 12.2 sec (9.6-11.0)
[2020-12-26 22:37] LABS: PLATELET ESTIMATE NORMAL
[2020-12-26] MEDS ORDERED: ACETAMINOPHEN 325MG TABLET PO STA (22:52)
[2020-12-26] MEDS ORDERED: INSULIN REGULAR (HUMULIN R) 300UNITS/3ML VIAL IV ONE (23:00)
[2020-12-26] MEDS ORDERED: DEXTROSE 50% WATER 50ML SYRINGE IV ONE (23:00)
[2020-12-26] MEDS ORDERED: SODIUM BICARBONATE 8.4% 1 MEQ/ML 50ML SYR IV ONE (23:00)
[2020-12-26] MEDS ORDERED: VANCOMYCIN 1 G PREMIX 200 ML IV ONE (23:00)
[2020-12-26] MEDS ORDERED: MEROPENEM 1,000 MG in SODIUM CHLORIDE 0.9% 100 ML IV ONE (23:00)
[2020-12-26] MEDS ORDERED: ASPIRIN 325MG TABLET PO ONE (23:00)
[2020-12-27] MEDS: ALBUTEROL (0.083%) 2.5MG/3ML NEB HHN SCH ×3 (00:45→01:36)
[2020-12-27] MEDS ORDERED: PIPERACILLIN/TAZOBACTAM 3.375 G in DEXT 5% WATER 100 ML IV SCH (08:30)
[2020-12-27] MEDS ORDERED: ONDANSETRON HCL 4MG/2ML INJ IV PRN (08:30)
[2020-12-27] MEDS ORDERED: PIPERACILLIN/TAZOBACTAM 2.25 G in DEXTROSE 5% WATER 50 ML IV SCH (09:30)
[2020-12-27] MEDS: SEVELAMER CARBONATE 800 MG TABLET PO SCH ×3 (09:57→17:56)
[2020-12-27 17:35] VITALS: BP 103/59
[2020-12-27] MEDS: CINACALCET HCL 30MG TABLET PO SCH (17:56)
[2020-12-27 20:40] VITALS: BP 124/67
[2020-12-27] MEDS: ACETAMINOPHEN 325MG TABLET PO PRN ×2 (21:26→22:52)
[2020-12-27] MEDS: PIPERACILLIN/TAZOBACTAM 2.25 G in DEXTROSE 5% WATER 50 ML IV SCH (23:51)
[2020-12-28] VITALS (7 sets, daily range): BP systolic 124–148; BP diastolic 51–77
[2020-12-28] MEDS: ACETAMINOPHEN 325MG TABLET PO PRN ×2 (05:47→19:50)
[2020-12-28] MEDS ORDERED: DIPHENHYDRAMINE 25MG CAPSULE PO SCH (08:45)
[2020-12-28] MEDS: PIPERACILLIN/TAZOBACTAM 2.25 G in DEXTROSE 5% WATER 50 ML IV SCH ×2 (08:52→20:45)
[2020-12-28] MEDS: SEVELAMER CARBONATE 800 MG TABLET PO SCH ×3 (08:52→18:22)
[2020-12-28] MEDS ORDERED: SODIUM BICARBONATE 4% (2.4MEQ) 5ML VIAL IV ONE (13:36)
[2020-12-28] MEDS ORDERED: HEPARIN 1000 UNITS/ML 10ML ONE (13:36)
[2020-12-28] MEDS ORDERED: LIDOCAINE HCL 1% 20ML VIAL (Pyxis) INJ ONE (13:36)
[2020-12-28] MEDS ORDERED: FENTANYL CITRATE/PF 50MCG/ML 2ML VIAL ONE (13:51)
[2020-12-28] MEDS ORDERED: DIPHENHYDRAMINE 50MG/ML VIAL ONE (13:52)
[2020-12-28] MEDS ORDERED: MIDAZOLAM HCL 2 MG/2 ML VIAL ONE (13:52)
[2020-12-28] MEDS: DIPHENHYDRAMINE 50MG CAPSULE PO PRN ×2 (14:58→21:45)
[2020-12-28 17:52] LABS: HEMATOCRIT. 26.2 % (36.0-48.0); HEMOGLOBIN. 8.4 g/dL (12.0-16.0); MEAN CORPUSCULAR HEMOGLOBIN 27.7 pg (28.0-32.0); MEAN CORPUSCULAR VOLUME 85.9 fL (81.0-99.0); MEAN PLATELET VOLUME 8.1 fl (7.4-10.4); PLATELET 238 x1000/uL (130-400); RED BLOOD CELL COUNT 3.04 mill/uL (4.2-5.4); RED CELL DISTRIBUTION WIDTH 18.2 % (11.6-14.6)
[2020-12-28] MEDS ORDERED: VANCOMYCIN 500 MG PREMIX 100 ML IV NR (18:00)
[2020-12-28 18:16] LABS: PLATELET ESTIMATE NORMAL
[2020-12-28] MEDS: CINACALCET HCL 30MG TABLET PO SCH (18:22)
[2020-12-29] VITALS: BP 126/75
[2020-12-29 04:00] VITALS: BP 144/85
[2020-12-29 08:00] VITALS: BP 137/86
[2020-12-29 08:54] LABS: BASOPHILS % 0.7 % (0.0-2.0); EOSINOPHILS % 3.3 % (0.0-5.0); HEMATOCRIT. 23.1 % (36.0-48.0); HEMOGLOBIN. 7.5 g/dL (12.0-16.0); LYMPHOCYTES % 7.8 % (20.0-50.0); MEAN PLATELET VOLUME 7.8 fl (7.4-10.4); MONOCYTES % 4.4 % (2.0-8.0); NEUTROPHILS % 83.8 % (40.0-76.0); PLATELET 231 x1000/uL (130-400); RED BLOOD CELL COUNT 2.68 mill/uL (4.2-5.4); RED CELL DISTRIBUTION WIDTH 18.1 % (11.6-14.6)
[2020-12-29] MEDS: SEVELAMER CARBONATE 800 MG TABLET PO SCH ×3 (09:19→17:59)
[2020-12-29] MEDS: PIPERACILLIN/TAZOBACTAM 2.25 G in DEXTROSE 5% WATER 50 ML IV SCH (09:19)
[2020-12-29 12:00] VITALS: BP 127/77
[2020-12-29 16:00] VITALS: BP 133/71
[2020-12-29] MEDS: CINACALCET HCL 30MG TABLET PO SCH (17:58)
[2020-12-29 20:00] VITALS: BP 139/77
[2020-12-30] VITALS (7 sets, daily range): BP systolic 128–160; BP diastolic 69–87
[2020-12-30] MEDS: ACETAMINOPHEN 325MG TABLET PO PRN ×2 (06:50→22:25)
[2020-12-30] MEDS: SEVELAMER CARBONATE 800 MG TABLET PO SCH ×3 (09:47→18:19)
[2020-12-30] MEDS: DIPHENHYDRAMINE 50MG CAPSULE PO PRN ×2 (12:23→22:24)
[2020-12-30] MEDS: CINACALCET HCL 30MG TABLET PO SCH (18:19)
[2020-12-31] VITALS (7 sets, daily range): BP systolic 118–148; BP diastolic 69–87
[2020-12-31] MEDS: SEVELAMER CARBONATE 800 MG TABLET PO SCH ×3 (08:28→17:29)
[2020-12-31] MEDS: DIPHENHYDRAMINE 50MG CAPSULE PO PRN ×3 (08:28→21:41)
[2020-12-31] MEDS: ACETAMINOPHEN 325MG TABLET PO PRN ×2 (08:29→17:30)
[2020-12-31 08:55] LABS: BASOPHILS % 0.7 % (0.0-2.0); HEMOGLOBIN. 7.6 g/dL (12.0-16.0); LYMPHOCYTES % 16.8 % (20.0-50.0); MEAN CORPUSCULAR HEMOGLOBIN 27.1 pg (28.0-32.0); MEAN CORPUSCULAR VOLUME 85.7 fL (81.0-99.0); MEAN PLATELET VOLUME 7.1 fl (7.4-10.4); MONOCYTES % 8.6 % (2.0-8.0); NEUTROPHILS % 68.9 % (40.0-76.0); PLATELET 230 x1000/uL (130-400); RED CELL DISTRIBUTION WIDTH 17.7 % (11.6-14.6)
[2020-12-31] MEDS: CINACALCET HCL 30MG TABLET PO SCH (17:29)
[2021-01-01] VITALS (7 sets, daily range): BP systolic 130–160; BP diastolic 70–85
[2021-01-01] MEDS: SEVELAMER CARBONATE 800 MG TABLET PO SCH ×3 (07:40→18:26)
[2021-01-01 08:49] LABS: BASOPHILS % 1.2 % (0.0-2.0); EOSINOPHILS % 3.9 % (0.0-5.0); HEMATOCRIT. 24.6 % (36.0-48.0); HEMOGLOBIN. 7.7 g/dL (12.0-16.0); LYMPHOCYTES % 14.7 % (20.0-50.0); MEAN CORPUSCULAR HEMOGLOBIN 27.7 pg (28.0-32.0); MEAN CORPUSCULAR VOLUME 88.5 fL (81.0-99.0); MEAN PLATELET VOLUME 7.5 fl (7.4-10.4); MONOCYTES % 7.4 % (2.0-8.0); NEUTROPHILS % 72.8 % (40.0-76.0); PLATELET 226 x1000/uL (130-400); RED BLOOD CELL COUNT 2.77 mill/uL (4.2-5.4); RED CELL DISTRIBUTION WIDTH 18.3 % (11.6-14.6)
[2021-01-01] MEDS: ACETAMINOPHEN 325MG TABLET PO PRN ×2 (10:03→20:56)
[2021-01-01] MEDS ORDERED: EPOETIN ALFA 10000UNITS/ML VIAL SUBCUT ONE (10:15)
[2021-01-01] MEDS ORDERED: PARICALCITOL 2 MCG/ML VIAL IV NR (13:00)
[2021-01-01] MEDS: DIPHENHYDRAMINE 50MG CAPSULE PO PRN (14:12)
[2021-01-01] MEDS ORDERED: VANCOMYCIN 500 MG PREMIX 100 ML IV NR (15:00)
[2021-01-01] MEDS: CINACALCET HCL 30MG TABLET PO SCH (18:26)
[2021-01-01] MEDS: PANTOPRAZOLE SODIUM 40 MG/VIAL IV SCH (18:26)
[2021-01-01] MEDS: EPOETIN ALFA-EPBX 10,000 UNIT/ML VIAL SUBCUT SCH (20:34)
[2021-01-02] VITALS: BP 133/78
[2021-01-02] MEDS: DIPHENHYDRAMINE 50MG CAPSULE PO PRN (00:33)
[2021-01-02 04:00] VITALS: BP 139/78
[2021-01-02 06:38] LABS: BASOPHILS % 0.7 % (0.0-2.0); EOSINOPHILS % 4.3 % (0.0-5.0); HEMATOCRIT. 24.4 % (36.0-48.0); HEMOGLOBIN. 7.9 g/dL (12.0-16.0); LYMPHOCYTES % 11.7 % (20.0-50.0); MEAN CORPUSCULAR HEMOGLOBIN 27.5 pg (28.0-32.0); MEAN CORPUSCULAR VOLUME 85.4 fL (81.0-99.0); MEAN PLATELET VOLUME 7.3 fl (7.4-10.4); MONOCYTES % 4.3 % (2.0-8.0); PLATELET 269 x1000/uL (130-400); RED BLOOD CELL COUNT 2.86 mill/uL (4.2-5.4); RED CELL DISTRIBUTION WIDTH 17.6 % (11.6-14.6)
[2021-01-02 06:52] LABS: FERRITIN 431 ng/mL (10-291)
[2021-01-02 07:06] LABS: VITAMIN B12 SERUM 300 pg/mL (211-911)
[2021-01-02 07:54] LABS: FOLIC ACID (FOLATE) SERUM > 20.00 ng/mL (>5.38)
[2021-01-02 08:00] VITALS: BP 138/77
[2021-01-02] MEDS: PANTOPRAZOLE SODIUM 40 MG/VIAL IV SCH ×2 (09:59→18:31)
[2021-01-02] MEDS: SEVELAMER CARBONATE 800 MG TABLET PO SCH ×3 (09:59→18:29)
[2021-01-02 12:00] VITALS: BP 150/78
[2021-01-02] MEDS: ACETAMINOPHEN 325MG TABLET PO PRN ×2 (13:39→18:30)
[2021-01-02] MEDS: FERROUS SULFATE 325MG TABLET PO SCH ×2 (13:40→18:29)
[2021-01-02] MEDS: ASCORBIC ACID 500 MG TABLET PO SCH (13:40)
[2021-01-02 16:00] VITALS: BP 115/71
[2021-01-02] MEDS: CINACALCET HCL 30MG TABLET PO SCH (18:30)
[2021-01-02 20:00] VITALS: BP 119/69
[2021-01-03] VITALS: BP 121/66
[2021-01-03] MEDS: DIPHENHYDRAMINE 50MG CAPSULE PO PRN ×2 (02:08→20:46)
[2021-01-03 04:00] VITALS: BP 112/66
[2021-01-03 08:00] VITALS: BP 145/87
[2021-01-03] MEDS: ASCORBIC ACID 500 MG TABLET PO SCH (11:24)
[2021-01-03] MEDS: FERROUS SULFATE 325MG TABLET PO SCH ×3 (11:24→19:25)
[2021-01-03] MEDS: PANTOPRAZOLE SODIUM 40 MG/VIAL IV SCH ×2 (11:24→19:24)
[2021-01-03] MEDS: SEVELAMER CARBONATE 800 MG TABLET PO SCH ×2 (11:25→19:24)
[2021-01-03 12:00] VITALS: BP 141/75
[2021-01-03 16:00] VITALS: BP 114/71
[2021-01-03] MEDS ORDERED: HEPARIN SODIUM 1,000 UNIT/1ML VIAL IV NR (16:45)
[2021-01-03] MEDS: CINACALCET HCL 30MG TABLET PO SCH (19:24)
[2021-01-03 20:00] VITALS: BP 155/93
[2021-01-03] MEDS ORDERED: VANCOMYCIN 500 MG PREMIX 100 ML IV SCH (20:00)
[2021-01-03] MEDS: ACETAMINOPHEN 325MG TABLET PO PRN (20:46)
[2021-01-03] MEDS: EPOETIN ALFA-EPBX 10,000 UNIT/ML VIAL SUBCUT SCH (21:44)
[2021-01-04] VITALS: BP 149/60
[2021-01-04 04:00] VITALS: BP 110/60
[2021-01-04 07:16] LABS: BASOPHILS % 0.9 % (0.0-2.0); EOSINOPHILS % 3.4 % (0.0-5.0); HEMATOCRIT. 24.6 % (36.0-48.0); HEMOGLOBIN. 7.8 g/dL (12.0-16.0); LYMPHOCYTES % 12.6 % (20.0-50.0); MEAN CORPUSCULAR HEMOGLOBIN 27.3 pg (28.0-32.0); MEAN CORPUSCULAR VOLUME 86.1 fL (81.0-99.0); MEAN PLATELET VOLUME 7.3 fl (7.4-10.4); MONOCYTES % 4.9 % (2.0-8.0); NEUTROPHILS % 78.2 % (40.0-76.0); PLATELET 322 x1000/uL (130-400); RED BLOOD CELL COUNT 2.85 mill/uL (4.2-5.4); RED CELL DISTRIBUTION WIDTH 17.7 % (11.6-14.6)
[2021-01-04] MEDS: SEVELAMER CARBONATE 800 MG TABLET PO SCH ×3 (09:42→17:01)
[2021-01-04] MEDS: ASCORBIC ACID 500 MG TABLET PO SCH (09:42)
[2021-01-04] MEDS: FERROUS SULFATE 325MG TABLET PO SCH ×3 (09:42→17:03)
[2021-01-04] MEDS: PANTOPRAZOLE SODIUM 40 MG/VIAL IV SCH ×2 (09:42→17:01)
[2021-01-04 16:00] VITALS: BP 123/67
[2021-01-04] MEDS: DIPHENHYDRAMINE 50MG CAPSULE PO PRN (17:01)
[2021-01-04] MEDS: CINACALCET HCL 30MG TABLET PO SCH (17:01)
[2021-01-04 20:00] VITALS: BP 139/80
[2021-01-05] VITALS: BP 130/80
[2021-01-05 04:00] VITALS: BP 120/66
[2021-01-05 07:15] LABS: BASOPHILS % 0.4 % (0.0-2.0); EOSINOPHILS % 2.1 % (0.0-5.0); HEMOGLOBIN. 7.7 g/dL (12.0-16.0); LYMPHOCYTES % 12.5 % (20.0-50.0); MEAN CORPUSCULAR HEMOGLOBIN 27.2 pg (28.0-32.0); MEAN CORPUSCULAR VOLUME 84.8 fL (81.0-99.0); MEAN PLATELET VOLUME 7.2 fl (7.4-10.4); MONOCYTES % 4.1 % (2.0-8.0); NEUTROPHILS % 80.9 % (40.0-76.0); PLATELET 326 x1000/uL (130-400); RED BLOOD CELL COUNT 2.83 mill/uL (4.2-5.4); RED CELL DISTRIBUTION WIDTH 17.2 % (11.6-14.6)
[2021-01-05] MEDS ORDERED: LIDOCAINE HCL 1% 20ML VIAL (Pyxis) INJ ONE (07:51)
[2021-01-05] MEDS ORDERED: BACITRACIN 15GM TUBE TOP ONE (07:51)
[2021-01-05] MEDS ORDERED: HEPARIN SODIUM 1,000 UNIT/1ML VIAL IV ONE (07:52)
[2021-01-05] MEDS ORDERED: THROMBIN (BOVINE) 5000 UNITS/VIAL TOP ONE (07:52)
[2021-01-05] MEDS ORDERED: BACITRACIN 50,000 UNITS/VIAL ONE (07:52)
[2021-01-05] MEDS ORDERED: BUPIVACAINE HCL/PF 0.5% (5MG/ML) 10ML ONE (07:52)
[2021-01-05 08:00] VITALS: BP 117/67
[2021-01-05] MEDS: FERROUS SULFATE 325MG TABLET PO SCH ×3 (08:18→18:03)
[2021-01-05] MEDS: ASCORBIC ACID 500 MG TABLET PO SCH (08:18)
[2021-01-05] MEDS: SEVELAMER CARBONATE 800 MG TABLET PO SCH ×3 (08:18→18:03)
[2021-01-05] MEDS: PANTOPRAZOLE SODIUM 40 MG/VIAL IV SCH ×2 (08:18→18:03)
[2021-01-05] MEDS ORDERED: MORPHINE SULFATE 2 MG/ML CPJ (NOT FOR IM USE) IV PRN (11:45)
[2021-01-05] MEDS ORDERED: FENTANYL CITRATE/PF 50MCG/ML 2ML VIAL ONE (11:57)
[2021-01-05] MEDS ORDERED: EPHEDRINE SULFATE 50MG/ML VIAL ONE (12:03)
[2021-01-05] MEDS ORDERED: HEPARIN 1000 UNITS/ML 10ML ONE (12:14)
[2021-01-05] MEDS ORDERED: HYDROMORPHONE HCL/PF 2MG/ML CPJ IV PRN (12:45)
[2021-01-05 13:00] VITALS: BP 126/66
[2021-01-05] MEDS: DIPHENHYDRAMINE 50MG CAPSULE PO PRN (14:57)
[2021-01-05] MEDS ORDERED: ONDANSETRON HCL 4MG/2ML INJ ONE (15:38)
[2021-01-05 16:00] VITALS: BP 118/73
[2021-01-05] MEDS: CINACALCET HCL 30MG TABLET PO SCH (18:03)
[2021-01-05] MEDS: POLYETHYLENE GLYCOL 3350 (17GM) 1 DOSE PACK PO SCH (18:03)
[2021-01-05] MEDS: DOCUSATE SODIUM 250MG CAPSULE PO SCH (18:03)
[2021-01-05] MEDS: ACETAMINOPHEN 325MG TABLET PO PRN (18:05)
[2021-01-05 20:00] VITALS: BP 139/89
[2021-01-05] MEDS: LACTULOSE 20G/30ML UDC PO SCH (21:00)
[2021-01-05] MEDS: EPOETIN ALFA-EPBX 10,000 UNIT/ML VIAL SUBCUT SCH (21:00)
[2021-01-06] VITALS (9 sets, daily range): BP systolic 118–148; BP diastolic 63–89
[2021-01-06] MEDS: EPOETIN ALFA-EPBX 10,000 UNIT/ML VIAL SUBCUT SCH ×2 (00:47→00:49)
[2021-01-06 08:22] LABS: BASOPHILS % 0.4 % (0.0-2.0); EOSINOPHILS % 2.8 % (0.0-5.0); HEMATOCRIT. 21.2 % (36.0-48.0); LYMPHOCYTES % 11.1 % (20.0-50.0); MEAN CORPUSCULAR HEMOGLOBIN 27.2 pg (28.0-32.0); MEAN CORPUSCULAR VOLUME 85.6 fL (81.0-99.0); MEAN PLATELET VOLUME 6.8 fl (7.4-10.4); MONOCYTES % 3.5 % (2.0-8.0); NEUTROPHILS % 82.2 % (40.0-76.0); PLATELET 368 x1000/uL (130-400); RED BLOOD CELL COUNT 2.48 mill/uL (4.2-5.4); RED CELL DISTRIBUTION WIDTH 17.6 % (11.6-14.6)
[2021-01-06] MEDS: PANTOPRAZOLE SODIUM 40 MG/VIAL IV SCH ×3 (08:28→17:57)
[2021-01-06] MEDS: FERROUS SULFATE 325MG TABLET PO SCH ×3 (08:28→17:57)
[2021-01-06] MEDS: POLYETHYLENE GLYCOL 3350 (17GM) 1 DOSE PACK PO SCH (08:28)
[2021-01-06] MEDS: ASCORBIC ACID 500 MG TABLET PO SCH (08:28)
[2021-01-06] MEDS: DOCUSATE SODIUM 250MG CAPSULE PO SCH (08:28)
[2021-01-06] MEDS: SEVELAMER CARBONATE 800 MG TABLET PO SCH ×3 (08:28→17:57)
[2021-01-06 10:31] LABS: HEMOGLOBIN. 6.7 g/dL (12.0-16.0)
[2021-01-06] MEDS ORDERED: DIPHENHYDRAMINE 25MG CAPSULE PO ONE (11:00)
[2021-01-06] MEDS ORDERED: ACETAMINOPHEN 325MG TABLET PO ONE (11:00)
[2021-01-06] MEDS: CINACALCET HCL 30MG TABLET PO SCH (17:57)
[2021-01-06 19:51] LABS: HEMATOCRIT. 25.1 % (36.0-48.0); HEMOGLOBIN. 8.3 g/dL (12.0-16.0); MEAN CORPUSCULAR HEMOGLOBIN 28.5 pg (28.0-32.0); MEAN CORPUSCULAR VOLUME 86.2 fL (81.0-99.0); MEAN PLATELET VOLUME 6.8 fl (7.4-10.4); PLATELET 366 x1000/uL (130-400); RED BLOOD CELL COUNT 2.92 mill/uL (4.2-5.4)
[2021-01-06 20:01] LABS: INR 1.1; PROTHROMBIN TIME 11.7 sec (9.6-11.0)
[2021-01-06 20:39] LABS: PLATELET ESTIMATE NORMAL
[2021-01-06] MEDS: LACTULOSE 20G/30ML UDC PO SCH ×2 (20:58→21:00)
[2021-01-06] MEDS: ACETAMINOPHEN 325MG TABLET PO PRN (20:58)
[2021-01-07] VITALS: BP 138/68
[2021-01-07 04:00] VITALS: BP 109/57
[2021-01-07 08:00] VITALS: BP 134/82
[2021-01-07] MEDS: FERROUS SULFATE 325MG TABLET PO SCH ×3 (08:40→17:27)
[2021-01-07] MEDS: DOCUSATE SODIUM 250MG CAPSULE PO SCH (08:40)
[2021-01-07] MEDS: POLYETHYLENE GLYCOL 3350 (17GM) 1 DOSE PACK PO SCH (08:40)
[2021-01-07] MEDS: ASCORBIC ACID 500 MG TABLET PO SCH (08:40)
[2021-01-07] MEDS: SEVELAMER CARBONATE 800 MG TABLET PO SCH ×3 (08:40→17:27)
[2021-01-07] MEDS: PANTOPRAZOLE SODIUM 40 MG/VIAL IV SCH ×3 (08:41→17:28)
[2021-01-07 08:45] LABS: BASOPHILS % 0.6 % (0.0-2.0); EOSINOPHILS % 2.6 % (0.0-5.0); HEMOGLOBIN. 8.6 g/dL (12.0-16.0); LYMPHOCYTES % 8.6 % (20.0-50.0); MEAN CORPUSCULAR HEMOGLOBIN 27.6 pg (28.0-32.0); MEAN CORPUSCULAR VOLUME 86.9 fL (81.0-99.0); MONOCYTES % 4.1 % (2.0-8.0); NEUTROPHILS % 84.1 % (40.0-76.0); PLATELET 385 x1000/uL (130-400); RED BLOOD CELL COUNT 3.11 mill/uL (4.2-5.4); RED CELL DISTRIBUTION WIDTH 17.2 % (11.6-14.6)
[2021-01-07 12:00] VITALS: BP 134/71
[2021-01-07] MEDS: DIPHENHYDRAMINE 50MG CAPSULE PO PRN ×2 (13:16→21:07)
[2021-01-07] MEDS: ACETAMINOPHEN 325MG TABLET PO PRN ×2 (13:17→20:23)
[2021-01-07 16:00] VITALS: BP 134/77
[2021-01-07] MEDS ORDERED: OMEP40CA12 MT (16:20)
[2021-01-07] MEDS ORDERED: SUCR1TAB30 PO (16:20)
[2021-01-07] MEDS ORDERED: CINA30 PO (16:20)
[2021-01-07] MEDS: CINACALCET HCL 30MG TABLET PO SCH (17:28)
[2021-01-07 20:00] VITALS: BP 122/73
[2021-01-07] MEDS: LACTULOSE 20G/30ML UDC PO SCH (20:23)
[2021-01-08] VITALS: BP 125/77
[2021-01-08 04:00] VITALS: BP 121/78
[2021-01-08 08:00] VITALS: BP 116/79
[2021-01-08 08:23] LABS: BASOPHILS % 0.5 % (0.0-2.0); EOSINOPHILS % 3.1 % (0.0-5.0); HEMATOCRIT. 23.6 % (36.0-48.0); HEMOGLOBIN. 7.8 g/dL (12.0-16.0); LYMPHOCYTES % 11.7 % (20.0-50.0); MEAN CORPUSCULAR HEMOGLOBIN 28.6 pg (28.0-32.0); MEAN CORPUSCULAR VOLUME 86.7 fL (81.0-99.0); MEAN PLATELET VOLUME 6.9 fl (7.4-10.4); NEUTROPHILS % 79.7 % (40.0-76.0); PLATELET 383 x1000/uL (130-400); RED BLOOD CELL COUNT 2.73 mill/uL (4.2-5.4); RED CELL DISTRIBUTION WIDTH 17.3 % (11.6-14.6)
[2021-01-08] MEDS: DOCUSATE SODIUM 250MG CAPSULE PO SCH (09:26)
[2021-01-08] MEDS: ASCORBIC ACID 500 MG TABLET PO SCH (09:26)
[2021-01-08] MEDS: POLYETHYLENE GLYCOL 3350 (17GM) 1 DOSE PACK PO SCH (09:27)
[2021-01-08] MEDS: FERROUS SULFATE 325MG TABLET PO SCH ×3 (09:27→18:25)
[2021-01-08] MEDS: SEVELAMER CARBONATE 800 MG TABLET PO SCH ×3 (09:27→18:26)
[2021-01-08] MEDS: PANTOPRAZOLE SODIUM 40 MG/VIAL IV SCH ×2 (09:27→18:26)
[2021-01-08] MEDS ORDERED: HEPARIN 1000 UNITS/ML 10ML ONE (09:49)
[2021-01-08] MEDS ORDERED: SODIUM BICARBONATE 4% (2.4MEQ) 5ML VIAL IV ONE (09:49)
[2021-01-08] MEDS ORDERED: LIDOCAINE HCL 1% 20ML VIAL (Pyxis) INJ ONE ×2 (09:49→11:08)
[2021-01-08] MEDS ORDERED: PROPOFOL 200MG/20ML VIAL IV ONE (10:44)
[2021-01-08] MEDS ORDERED: FENTANYL CITRATE/PF 50MCG/ML 2ML VIAL ONE (10:44)
[2021-01-08] MEDS ORDERED: CEFAZOLIN SODIUM 1000MG/VIAL ONE (10:57)
[2021-01-08] MEDS ORDERED: ONDANSETRON HCL 4MG/2ML INJ ONE ×2 (10:58→10:59)
[2021-01-08] MEDS ORDERED: PROPOFOL 10MG/ML 100ML 100 ML IV ONE (11:09)
[2021-01-08 12:00] VITALS: BP 106/67
[2021-01-08 16:00] VITALS: BP 149/76
[2021-01-08] MEDS: CINACALCET HCL 30MG TABLET PO SCH (18:25)
[2021-01-08] MEDS ORDERED: VANCOMYCIN 500 MG PREMIX 100 ML IV SCH (21:00)
== END 2021-01-08 19:05 | disposition home or self-care (01) | DRG 252 ==
LOC: ER 20:53 → MICUSO 23:32 → EDBEDREQ 23:57 → EDBEDREQTM 23:57 → EDBEDREQSVC 23:57 → 7WST 12-27 16:34 → 8WST 12-28 06:17
PROVIDERS: ADMIT Internal Medicine; ATTEND Internal Medicine
PROC: 5A1D70Z Performance of Urinary Filtration, Intermittent, Less than 6 Hours Per Day (ICD-10-PCS; 2020-12-27)
PROC: 0JPT3XZ Removal of Tunneled Vascular Access Device from Trunk Subcutaneous Tissue and Fascia, Percutaneous Approach (ICD-10-PCS; 2020-12-28)
PROC: 02PYX3Z Removal of Infusion Device from Great Vessel, External Approach (ICD-10-PCS; 2020-12-28)
PROC: 02HV33Z Insertion of Infusion Device into Superior Vena Cava, Percutaneous Approach (ICD-10-PCS; 2020-12-28)
PROC: B548ZZA Ultrasonography of Superior Vena Cava, Guidance (ICD-10-PCS; 2020-12-28)
PROC: B5181ZA Fluoroscopy of Superior Vena Cava using Low Osmolar Contrast, Guidance (ICD-10-PCS; 2020-12-28)
PROC: 5A1D70Z Performance of Urinary Filtration, Intermittent, Less than 6 Hours Per Day (ICD-10-PCS; 2020-12-29)
PROC: 5A1D70Z Performance of Urinary Filtration, Intermittent, Less than 6 Hours Per Day (ICD-10-PCS; 2021-01-01)
PROC: 5A1D70Z Performance of Urinary Filtration, Intermittent, Less than 6 Hours Per Day (ICD-10-PCS; 2021-01-03)
PROC: 041L0JS Bypass Left Femoral Artery to Lower Extremity Vein with Synthetic Substitute, Open Approach (ICD-10-PCS; principal; 2021-01-05)
PROC: 5A1D70Z Performance of Urinary Filtration, Intermittent, Less than 6 Hours Per Day (ICD-10-PCS; 2021-01-05)
PROC: 30233N1 Transfusion of Nonautologous Red Blood Cells into Peripheral Vein, Percutaneous Approach (ICD-10-PCS; 2021-01-06)
PROC: 02PYX3Z Removal of Infusion Device from Great Vessel, External Approach (ICD-10-PCS; 2021-01-08)
PROC: 0JH63XZ Insertion of Tunneled Vascular Access Device into Chest Subcutaneous Tissue and Fascia, Percutaneous Approach (ICD-10-PCS; 2021-01-08)
PROC: 02H633Z Insertion of Infusion Device into Right Atrium, Percutaneous Approach (ICD-10-PCS; 2021-01-08)
PROC: B5181ZA Fluoroscopy of Superior Vena Cava using Low Osmolar Contrast, Guidance (ICD-10-PCS; 2021-01-08)
DX: T80.211A Bloodstream infection due to central venous catheter, initial encounter (principal); N18.6 End stage renal disease; A41.02 Sepsis due to Methicillin resistant Staphylococcus aureus; E87.1 Hypo-osmolality and hyponatremia; I12.0 Hypertensive chronic kidney disease with stage 5 chronic kidney disease or end stage renal disease; F03.90 Unspecified dementia, unspecified severity, without behavioral disturbance, psychotic disturbance, mood disturbance, and anxiety; E87.5 Hyperkalemia; D63.8 Anemia in other chronic diseases classified elsewhere; E10.22 Type 1 diabetes mellitus with diabetic chronic kidney disease; E10.51 Type 1 diabetes mellitus with diabetic peripheral angiopathy without gangrene; F20.9 Schizophrenia, unspecified; Z20.822 Contact with and (suspected) exposure to COVID-19; Y84.8 Other medical procedures as the cause of abnormal reaction of the patient, or of later complication, without mention of misadventure at the time of the procedure; Z82.49 Family history of ischemic heart disease and other diseases of the circulatory system; Z99.2 Dependence on renal dialysis; Z86.14 Personal history of Methicillin resistant Staphylococcus aureus infection; Z86.73 Personal history of transient ischemic attack (TIA), and cerebral infarction without residual deficits; Z87.11 Personal history of peptic ulcer disease; Z87.891 Personal history of nicotine dependence; Z89.511 Acquired absence of right leg below knee; Z89.512 Acquired absence of left leg below knee; Z91.19 Patient's noncompliance with other medical treatment and regimen; Z79.899 Other long term (current) drug therapy; Y92.89 Other specified places as the place of occurrence of the external cause; F10.11 Alcohol abuse, in remission
CPT/HCPCS: 36415; 36556; 36558; 36589; 71045; 76937; 77001; 78806; 80048; 80053; 80076; 80202; 82140; 82270; 82607; 82728; 82746; 82962; 83540; 83550; 83605; 84145; 84484; 85025; 85044; 85384; 86850; 86900; 86920; 87077; 87186; 87426; 93005; 93306; 94640; 99291; A6261; A9547; C1750; C1752; C1768; C1769; C1887; C1893; C9113; J0690; J0885; J1200; J1644; J1815; J2185; J2250; J2405; J2543; J2704; J3010; J3370; J3490; J7040; J7042; J7050; J7060; L8514; P9016; Q0163; U0003

== ENCOUNTER 2021-01-20 04:32 | Inpatient (IN) | payer MEDICARE, MEDICAID ==
[~2021-01-20] VITALS: Ht 162.6 cm; Wt 73.5 kg
[~2021-01-20 04:32] MED LIST changes: -BENA20TA77 PO; +CINA30 PO; +OMEP40CA12 MT
[2021-01-20] MEDS ORDERED: ONDANSETRON HCL 4MG/2ML INJ IV STA (05:36)
[2021-01-20] MEDS ORDERED: MORPHINE SULFATE 4 MG/ML CPJ (NOT FOR IM USE) IV STA (05:36)
[2021-01-20 05:59] LABS: BASOPHILS % 1.3 % (0.0-2.0); EOSINOPHILS % 4.3 % (0.0-5.0); HEMATOCRIT. 30.9 % (36.0-48.0); HEMOGLOBIN. 9.3 g/dL (12.0-16.0); MEAN CORPUSCULAR HEMOGLOBIN 27.1 pg (28.0-32.0); MEAN CORPUSCULAR VOLUME 90.2 fL (81.0-99.0); MEAN PLATELET VOLUME 6.6 fl (7.4-10.4); MONOCYTES % 5.1 % (2.0-8.0); NEUTROPHILS % 73.3 % (40.0-76.0); PLATELET 564 x1000/uL (130-400); RED BLOOD CELL COUNT 3.42 mill/uL (4.2-5.4); RED CELL DISTRIBUTION WIDTH 17.7 % (11.6-14.6)
[2021-01-20 06:06] LABS: INR 1.1; PROTHROMBIN TIME 11.5 sec (9.6-11.0)
[2021-01-20 07:30] LABS: CHLORIDE 107 mEq/L (98-107)
[2021-01-20 07:34] LABS: ETHANOL BLOOD < 10 mg/dL
[2021-01-20] MEDS ORDERED: CALCIUM GLUCONATE 1GM PREMIX 50 ML IV ONE ×3 (08:00)
[2021-01-20] MEDS ORDERED: ONDANSETRON HCL 4MG/2ML INJ IV PRN (09:15)
[2021-01-20] MEDS ORDERED: DOCUSATE SODIUM 100MG CAPSULE PO PRN (09:15)
[2021-01-20] MEDS ORDERED: ACETAMINOPHEN 325MG TABLET PO PRN (09:15)
[2021-01-20] MEDS ORDERED: DEXTROSE 50% WATER 50ML SYRINGE IV PRN ×2 (09:15)
[2021-01-20] MEDS ORDERED: CLONIDINE 0.1MG TABLET PO PRN (09:15)
[2021-01-20] MEDS ORDERED: IPRATROPIUM/ALBUTEROL 0.5-3(2.5)MG/3ML NEB HHN PRN (09:15)
[2021-01-20] MEDS ORDERED: MAGNESIUM/ALUMINUM HYDROXIDE/SIMETHICONE 30ML UDC PO PRN (09:15)
[2021-01-20] MEDS ORDERED: HYDROCODONE/ACETAMINOPHEN 5/325MG TABLET PO PRN (09:15)
[2021-01-20] MEDS ORDERED: DEXTROSE 50% WATER 50ML SYRINGE IV NR (10:00)
[2021-01-20] MEDS ORDERED: INSULIN REGULAR (HUMULIN R) 300UNITS/3ML VIAL IV NR (10:00)
[2021-01-20] MEDS: ENOXAPARIN 30MG/0.3ML SYR SUBCUT SCH (11:08)
[2021-01-20 11:28] VITALS: BP 150/63
[2021-01-20 11:30] VITALS: BP 150/63
[2021-01-20] MEDS: INSULIN LISPRO 100 UNITS/ML SUBCUT SCH ×3 (12:40→20:02)
[2021-01-20] MEDS: BLOOD SUGAR DIAGNOSTIC STRIP TEST SCH ×3 (12:52→20:02)
[2021-01-20 16:00] VITALS: BP 127/63
[2021-01-20] MEDS: DIPHENHYDRAMINE 50MG CAPSULE PO PRN (17:48)
[2021-01-21] VITALS: BP 141/67
[2021-01-21] MEDS: BLOOD SUGAR DIAGNOSTIC STRIP TEST SCH ×4 (06:08→19:58)
[2021-01-21] MEDS: OMEPRAZOLE 20MG CAPSULE EXTENDED RELEASE PO SCH (06:10)
[2021-01-21 06:34] LABS: BASOPHILS % 0.9 % (0.0-2.0); EOSINOPHILS % 5.2 % (0.0-5.0); HEMATOCRIT. 26.8 % (36.0-48.0); HEMOGLOBIN. 8.7 g/dL (12.0-16.0); LYMPHOCYTES % 8.2 % (20.0-50.0); MEAN CORPUSCULAR HEMOGLOBIN 27.8 pg (28.0-32.0); MEAN CORPUSCULAR VOLUME 85.3 fL (81.0-99.0); MEAN PLATELET VOLUME 6.6 fl (7.4-10.4); MONOCYTES % 5.2 % (2.0-8.0); NEUTROPHILS % 80.5 % (40.0-76.0); PLATELET 479 x1000/uL (130-400); RED BLOOD CELL COUNT 3.15 mill/uL (4.2-5.4); RED CELL DISTRIBUTION WIDTH 16.7 % (11.6-14.6)
[2021-01-21] MEDS: INSULIN LISPRO 100 UNITS/ML SUBCUT SCH ×4 (07:26→19:58)
[2021-01-21 08:00] VITALS: BP 131/64
[2021-01-21 09:38] LABS: HDL CHOLESTEROL 42 mg/dL (40-59); LDL CHOLESTEROL 28 mg/dL (5-100)
[2021-01-21] MEDS: ENOXAPARIN 30MG/0.3ML SYR SUBCUT SCH (09:51)
[2021-01-21 12:00] VITALS: BP 188/44
[2021-01-21 17:47] LABS: CREATINE KINASE MB FRACTION 2.1 ng/mL (0.5-3.6)
[2021-01-21 20:00] VITALS: BP 123/69
[2021-01-21] MEDS: CARVEDILOL 3.125 MG TABLET PO SCH (20:00)
[2021-01-21] MEDS: DIPHENHYDRAMINE 50MG CAPSULE PO PRN (20:00)
[2021-01-22] VITALS: BP 128/60
[2021-01-22 04:00] VITALS: BP 150/66
[2021-01-22] MEDS: INSULIN LISPRO 100 UNITS/ML SUBCUT SCH ×3 (05:55→23:19)
[2021-01-22] MEDS: BLOOD SUGAR DIAGNOSTIC STRIP TEST SCH ×2 (05:55→21:00)
[2021-01-22] MEDS: OMEPRAZOLE 20MG CAPSULE EXTENDED RELEASE PO SCH ×2 (06:26→06:34)
[2021-01-22] MEDS: CARVEDILOL 3.125 MG TABLET PO SCH ×2 (09:00→23:06)
[2021-01-22] MEDS: ENOXAPARIN 30MG/0.3ML SYR SUBCUT SCH ×2 (09:00→10:15)
[2021-01-22 10:32] LABS: BASOPHILS % 0.9 % (0.0-2.0); HEMATOCRIT. 24.6 % (36.0-48.0); HEMOGLOBIN. 7.8 g/dL (12.0-16.0); LYMPHOCYTES % 18.9 % (20.0-50.0); MEAN CORPUSCULAR HEMOGLOBIN 27.2 pg (28.0-32.0); MEAN CORPUSCULAR VOLUME 86.1 fL (81.0-99.0); MONOCYTES % 5.4 % (2.0-8.0); NEUTROPHILS % 68.8 % (40.0-76.0); PLATELET 473 x1000/uL (130-400); RED BLOOD CELL COUNT 2.85 mill/uL (4.2-5.4); RED CELL DISTRIBUTION WIDTH 16.7 % (11.6-14.6)
[2021-01-22 20:00] VITALS: BP 152/77
[2021-01-22] MEDS: DIPHENHYDRAMINE 50MG CAPSULE PO PRN (23:17)
[2021-01-23] VITALS: BP 143/63
[2021-01-23 04:00] VITALS: BP 146/62
[2021-01-23] MEDS: OMEPRAZOLE 20MG CAPSULE EXTENDED RELEASE PO SCH (07:03)
[2021-01-23] MEDS: BLOOD SUGAR DIAGNOSTIC STRIP TEST SCH ×3 (08:40→17:15)
[2021-01-23] MEDS: ENOXAPARIN 30MG/0.3ML SYR SUBCUT SCH ×2 (08:49→21:08)
[2021-01-23 09:00] VITALS: BP 114/59
[2021-01-23] MEDS: INSULIN LISPRO 100 UNITS/ML SUBCUT SCH ×4 (09:16→21:14)
[2021-01-23] MEDS: CARVEDILOL 3.125 MG TABLET PO SCH ×2 (09:17→21:35)
[2021-01-23 12:00] VITALS: BP 124/70
[2021-01-23] MEDS ORDERED: HEPARIN SODIUM 1,000 UNIT/1ML VIAL IV NR (13:30)
[2021-01-23 16:00] VITALS: BP 118/67
[2021-01-23 20:00] VITALS: BP 146/67
[2021-01-23] MEDS ORDERED: EPOETIN ALFA-EPBX 4,000 UNIT/ML VIAL SUBCUT NR (21:00)
[2021-01-24] VITALS: BP 145/69
[2021-01-24 04:00] VITALS: BP 130/87
[2021-01-24] MEDS: OMEPRAZOLE 20MG CAPSULE EXTENDED RELEASE PO SCH (06:07)
[2021-01-24] MEDS: INSULIN LISPRO 100 UNITS/ML SUBCUT SCH ×2 (07:40→13:34)
[2021-01-24] MEDS: BLOOD SUGAR DIAGNOSTIC STRIP TEST SCH ×2 (07:55→12:53)
[2021-01-24] MEDS: CARVEDILOL 3.125 MG TABLET PO SCH (09:13)
[2021-01-24 11:05] LABS: HEMATOCRIT 27.9 % (36.0-48.0); HEMOGLOBIN 8.8 g/dL (12.0-16.0); MEAN CORPUSCULAR VOLUME 85.7 fL (81.0-99.0); PLATELET 395 x1000/uL (130-400); RED BLOOD CELL COUNT 3.26 mill/uL (4.2-5.4); RED CELL DISTRIBUTION WIDTH 16.6 % (11.6-14.6)
[2021-01-24 12:00] VITALS: BP 140/79
[2021-01-24 13:39] VITALS: BP 146/74
[2021-01-24] MEDS ORDERED: CARVEDILOL 6.25 MG TABLET PO SCH (21:00)
== END 2021-01-24 16:25 | disposition home or self-care (01) | DRG 425 ==
LOC: ER 04:32 → 8WST 07:58 → ENRESERV 09:33 → 8WST 17:03
PROVIDERS: ADMIT Internal Medicine; ATTEND Internal Medicine
PROC: 5A1D70Z Performance of Urinary Filtration, Intermittent, Less than 6 Hours Per Day (ICD-10-PCS; principal; 2021-01-20)
PROC: 5A1D70Z Performance of Urinary Filtration, Intermittent, Less than 6 Hours Per Day (ICD-10-PCS; 2021-01-22)
DX: E87.5 Hyperkalemia (principal); N18.6 End stage renal disease; E87.2 Acidosis; I42.9 Cardiomyopathy, unspecified; E11.22 Type 2 diabetes mellitus with diabetic chronic kidney disease; I50.20 Unspecified systolic (congestive) heart failure; I27.20 Pulmonary hypertension, unspecified; I13.2 Hypertensive heart and chronic kidney disease with heart failure and with stage 5 chronic kidney disease, or end stage renal disease; D62 Acute posthemorrhagic anemia; E21.3 Hyperparathyroidism, unspecified; R79.89 Other specified abnormal findings of blood chemistry; E87.70 Fluid overload, unspecified; E11.51 Type 2 diabetes mellitus with diabetic peripheral angiopathy without gangrene; E11.649 Type 2 diabetes mellitus with hypoglycemia without coma; F03.90 Unspecified dementia, unspecified severity, without behavioral disturbance, psychotic disturbance, mood disturbance, and anxiety; Z82.49 Family history of ischemic heart disease and other diseases of the circulatory system; Z86.73 Personal history of transient ischemic attack (TIA), and cerebral infarction without residual deficits; Z89.511 Acquired absence of right leg below knee; Z91.19 Patient's noncompliance with other medical treatment and regimen; Z99.2 Dependence on renal dialysis; E43 Unspecified severe protein-calorie malnutrition; Z68.27 Body mass index [BMI] 27.0-27.9, adult
CPT/HCPCS: 36415; 80048; 80053; 80061; 80320; 82550; 82553; 82962; 83036; 83735; 84100; 84443; 84484; 85025; 85027; 93005; 93306; 93970; 99291; C1893; J0610; J0885; J1644; J1650; J1815; J2270; J2405; Q0163; G0480